=== PATIENT | male | born 1945 | race Caucasian/White ===

== ENCOUNTER → 2018-01-29 14:08 | Outpatient (CLI) | payer MEDICARE, OTHER, SELFPAY ==
[2018-01-29 14:31] LABS: Bacteria Urine None Seen; WBC Urine None Seen (0-5/HPF)
[2018-01-29 14:40] LABS: Appearance Urine UA CLEAR; Bilirubin Urine UA NEGATIVE (NEGATIVE); Color Urine UA YELLOW; Glucose Urine UA NEGATIVE (Normal); Ketones Urine UA TRACE (NEGATIVE); Leukocyte Esterase Urine UA NEGATIVE (NEGATIVE); Nitrite Urine UA Negative (Negative); Occult Blood Urine UA 3+ (Negative); Protein Urine UA NEGATIVE (Negative); Specific Gravity Urine UA 1.015 (1.000-1.035); Urobilinogen Urine UA 0.2 E.U./dL (0.2); pH Urine UA 5.5 (4.5-8.0)
[2018-01-29 14:45] LABS: Culture Indicated Urine Cult Not Indicated; RBC Urine 5-10/HPF (0-5/HPF)
== END ==
PROVIDERS: Family Provider Naturopath; PCP Family Medicine; Visit Provider Urology
DX: R31.0 Gross hematuria (principal)
CPT/HCPCS: 81001

== ENCOUNTER → 2019-02-07 14:46 | Outpatient (CLI) | payer MEDICARE, OTHER, SELFPAY ==
[2019-02-07 14:58] LABS: Bacteria Urine None Seen; RBC Urine None Seen (0-5/HPF); WBC Urine None Seen (0-5/HPF)
[2019-02-07 15:03] LABS: Appearance Urine UA CLEAR; Bilirubin Urine UA NEGATIVE (NEGATIVE); Color Urine UA YELLOW; Glucose Urine UA NEGATIVE (Negative); Ketones Urine UA NEGATIVE (NEGATIVE); Leukocyte Esterase Urine UA NEGATIVE (NEGATIVE); Nitrite Urine UA NEGATIVE (Negative); Occult Blood Urine UA NEGATIVE (Negative); Protein Urine UA NEGATIVE (Negative); Specific Gravity Urine UA 1.015 (1.000-1.035); Urobilinogen Urine UA 0.2 E.U./dL (0.2); pH Urine UA 6.5 (4.5-8.0)
[2019-02-07 15:17] LABS: Culture Indicated Urine Cult Not Indicated; Urine Comments Microscopic Normal
== END ==
PROVIDERS: Family Provider Naturopath; PCP Family Medicine; Visit Provider Urology
DX: N39.0 Urinary tract infection, site not specified (principal)
CPT/HCPCS: 81001

== ENCOUNTER → 2019-11-24 12:54 | Outpatient (CLI) | payer MEDICARE, OTHER, SELFPAY ==
--- NOTE | 2019-11-24 | DI.CT.S_ITS ---
PROCEDURE: CT KIDNEY URETER BLADDER (KUB) INDICATIONS: Unspecified abdominal pain TECHNIQUE: Noncontrast 5 mm thick sections acquired from the diaphragms to the symphysis. 5 mm thick coronal and sagittal reformats were then performed. For radiation dose reduction, the following was used: automated exposure control, adjustment of mA and/or kV according to patient size. COMPARISON: [facility], CT, IVP (ABD & PEL WWO CONTRAST), 09/09/2017, 10:27. FINDINGS: Image quality: Excellent. Lung bases: Lung bases are clear. Heart size is normal. There is a moderate hiatal hernia. Urinary system: Both kidneys are normal in size. No kidney stones. No hydronephrosis or perinephric fat stranding. Incidental note is made of a retroaortic left renal vein. Both ureters appear non-dilated throughout their expected courses. Bladder wall thickness is normal; no calcified bladder stones. A small left-sided bladder diverticulum is again seen. Other solid organs: Liver is normal in size. Gallbladder is largely collapsed at the time of this study. Pancreas is normal in contours. Spleen is normal in size. No adrenal nodules. Peritoneum and bowel: Unenhanced bowel loops demonstrate normal wall thickness and caliber. No free fluid or air. Diverticulosis is seen, without findings of active diverticulitis. Incidental note is made of a normal-appearing appendix. Nodes and vessels: No retroperitoneal or mesenteric adenopathy by size criteria. Aorta and inferior vena cava are normal in caliber. Abdominal wall: No ventral hernias. Pelvis: No free pelvic fluid. No enlarged inguinal or pelvic lymph nodes are seen. There is a fat-containing left inguinal hernia seen. The prostate gland is enlarged, measuring 6.4 centimeters transversely. Bones: No suspicious bony lesions. There is a remote L2 anterior wedge deformity, with approximately 20% loss height anteriorly. Mild retrolisthesis is seen at the L2-L3 level. No acute vertebral body compression fractures. Focal L5-S1 degenerative change is seen. Milder degenerative changes are seen elsewhere. IMPRESSION: No imaging explanation is found for this patient's presenting symptoms. No stones or hydronephrosis can be seen. No dilated loops of bowel are seen. Incidental note is made of: Moderate hiatal hernia Diverticulosis, without findings of active diverticulitis Normal appendix Prominent prostate Small left-sided bladder diverticulum Fat containing left inguinal hernia Remote anterior wedge deformity of L2 Focal L5-S1 degenerative change Dictated by: Davie Franklin M.D. on 11/24/2019 at 12:16 Approved by: Davie Franklin M.D. on 11/24/2019 at 12:20
== END ==
PROVIDERS: Family Provider Naturopath; PCP Family Medicine; Referring Provider Urology; Visit Provider Urology
DX: R10.9 Unspecified abdominal pain (principal); K44.9 Diaphragmatic hernia without obstruction or gangrene; K57.90 Diverticulosis of intestine, part unspecified, without perforation or abscess without bleeding; K40.90 Unilateral inguinal hernia, without obstruction or gangrene, not specified as recurrent; N40.0 Benign prostatic hyperplasia without lower urinary tract symptoms; N32.3 Diverticulum of bladder; M47.817 Spondylosis without myelopathy or radiculopathy, lumbosacral region
CPT/HCPCS: 74176

== ENCOUNTER → 2020-06-01 12:27 | Outpatient (CLI) | payer MEDICARE, OTHER, SELFPAY ==
[2020-06-01 12:38] LABS: Bacteria Urine None Seen; RBC Urine None Seen (0-5/HPF); WBC Urine None Seen (0-5/HPF)
[2020-06-01 13:52] LABS: Appearance Urine UA CLEAR; Bilirubin Urine UA NEGATIVE (NEGATIVE); Color Urine UA YELLOW; Glucose Urine UA NEGATIVE (Negative); Ketones Urine UA NEGATIVE (NEGATIVE); Leukocyte Esterase Urine UA NEGATIVE (NEGATIVE); Nitrite Urine UA NEGATIVE (Negative); Occult Blood Urine UA NEGATIVE (Negative); Protein Urine UA NEGATIVE (Negative); Specific Gravity Urine UA 1.015 (1.000-1.035); Urobilinogen Urine UA 0.2 E.U./dL (0.2); pH Urine UA 5.5 (4.5-8.0)
[2020-06-01 14:02] LABS: Culture Indicated Urine Cult Not Indicated; Urine Comments Microscopic Normal
== END ==
PROVIDERS: Family Provider Naturopath; PCP Family Medicine; Referring Provider Urology; Visit Provider Urology
DX: R30.0 Dysuria (principal)
CPT/HCPCS: 81001

== ENCOUNTER → 2020-06-08 10:25 | Outpatient (CLI) | payer MEDICARE, OTHER, SELFPAY ==
[2020-06-08 12:51] LABS: Alanine Aminotransferase 23 IU/L (<50); Albumin 4.1 g/dL (3.5-5.0); Albumin Globulin Ratio 1.6 (1.0-2.8); Alkaline Phosphatase 60 U/L (38-126); Aspartate Aminotransferase 25 IU/L (17-59); BUN Creatinine Ratio 24.1 (6-22); Bilirubin Total 0.8 mg/dL (0.2-1.3); Blood Urea Nitrogen 19 mg/dL (9-20); Carbon Dioxide 31 mmol/L (22-32); Chloride 102 mmol/L (98-107); Estimated Glomerular Filt Rate > 60.0 mL/min (>60); Globulin 2.6 g/dL (1.7-4.1); Glucose 111 mg/dL (80-110); HEMOLYSIS < 15 (0-50); Sodium 136 mmol/L (137-145); Total Protein 6.7 g/dL (6.3-8.2)
== END ==
PROVIDERS: Family Provider Naturopath; Referring Provider Urology; Visit Provider Urology
DX: R31.0 Gross hematuria (principal)
CPT/HCPCS: 36415; 80053

== ENCOUNTER → 2020-06-14 14:00 | Outpatient (CLI) | payer MEDICARE, OTHER, SELFPAY ==
--- NOTE | 2020-06-14 | DI.CT.S_ITS ---
PROCEDURE: CT ABDOMEN PELVIS WO/W CON INDICATIONS: Gross hematuria TECHNIQUE: Optional 5 mm thick noncontrast images acquired from the diaphragm to the symphysis pubis. After the administration of intravenous contrast, 5 mm thick images acquired from the diaphragm to the symphysis pubis after a 10-minute delay. 2 mm thick coronal and sagittal reformats were then performed of the kidneys and ureters. For radiation dose reduction, the following was used: automated exposure control, adjustment of mA and/or kV according to patient size. COMPARISON: [facility], CT, CT KIDNEY URETER BLADDER (KUB), 11/24/2019, 13:00. [facility], CT, IVP (ABD & PEL WWO CONTRAST), 09/09/2017, 10:27. FINDINGS: Image quality: Excellent. Lung bases: Platelike atelectasis or scar is present in the dependent lungs bilaterally. The lung bases are otherwise clear. Heart is normal size. There is a small hiatal hernia. Urinary system: Both kidneys are normal in size, without hydronephrosis or nephrolithiasis on pre-contrast images. No perinephric fat stranding. There is normal bilateral renal enhancement. Renal calyces appear normal in morphology when filled with contrast. Opacified portions of both ureters demonstrate normal caliber. The bladder is thin walled overall. There is a questionable focal mass adjacent to the left ureterovesicular junction versus prostate enlargement (series 3/image 195). There are 2 small left lateral diverticular outpouchings. Other solid organs: Liver is normal in size and enhancement. Low-density cystic lesions at the dome of the liver are unchanged. Gallbladder is contracted . Biliary system is non dilated. Pancreas enhances normally. Spleen is normal in size and enhancement. No adrenal nodules. Peritoneum and bowel: Bowel loops demonstrate normal wall thickness and caliber. The appendix is thin walled and gas filled.There are scattered sigmoid diverticula. No evidence for diverticulitis. No free fluid or air. Nodes and vessels: No retroperitoneal or mesenteric adenopathy by size criteria. Aorta and inferior vena cava are normal in size. There are scattered atheromatous calcifications throughout the aorta and iliac arteries bilaterally. Abdominal wall: No ventral hernias. Pelvis: No pathologic free pelvic fluid. No inguinal adenopathy. There is a small fat containing left inguinal hernia. Bones: No suspicious bony lesions. No vertebral body compression fractures. IMPRESSION: 1. No hydronephrosis, nephrolithiasis, hydroureter, or ureterolithiasis. 2. Questionable posterior left bladder mass as described above. Direct visualization would be helpful to further characterize this finding. 3. Normal appendix. Diverticulosis. No acute diverticulitis. 4. Aortic atherosclerosis. Dictated by: Grazyna Cunningham M.D. on 06/14/2020 at 15:35 Approved by: Grazyna Cunningham M.D. on 06/14/2020 at 15:47
== END ==
PROVIDERS: Family Provider Naturopath; Referring Provider Urology; Visit Provider Urology
DX: R31.0 Gross hematuria (principal); K57.30 Diverticulosis of large intestine without perforation or abscess without bleeding; I70.0 Atherosclerosis of aorta
CPT/HCPCS: 74178; Q9967

== ENCOUNTER → 2020-06-25 12:54 | Outpatient (CLI) | payer MEDICARE, OTHER, SELFPAY ==
--- NOTE | 2020-06-25 12:58 | DI.MRI.S_ITS ---
PROCEDURE: MR PELIS WO/W CON INDICATIONS: Prostatodynia syndrome TECHNIQUE: Noncontrast coronal T1 spin echo and STIR, sagittal T1 spin echo with fat saturation and STIR, axial T1 spin echo and T2 fast spin echo with fat saturation. After the administration of contrast, axial/sagittal/coronal T1 spin echo with fat saturation through the pelvis. COMPARISON: [facility], CT, CT KIDNEY URETER BLADDER (KUB), 11/24/2019, 13:00. [facility], CT, CT ABDOMEN PELVIS WO/W CON, 06/14/2020, 14:07. FINDINGS: Image quality: Excellent. Bones: The visualized bone marrow demonstrates normal signal on all sequences. The overlying cortex appears intact. No abnormal intraosseous enhancement. Soft tissues: No soft tissue masses are visualized. The prostate gland demonstrates scattered ovoid and rounded nodular structures consistent with BPH but no malignant appearing mass is found. No inflammation at or adjacent to the prostate gland is seen. Several internal prostate calcifications are identified as was also the case on prior CT scanning from the study performed 06/14/20. The scanned muscles demonstrate normal overall bulk and internal signal. Subcutaneous tissues appear normal as well. No abnormal soft tissue enhancement. The prostate gland measures up to 5.6 cm AP, 5.7 cm transverse and 7.3 cm craniocaudad. IMPRESSION: A source of persistent prostate pain is not identified. Mild prostate enlargement, and internal morphology consistent with BPH. Several prostate calcifications are incidentally noted as was also seen on prior CT scanning. No underlying active infection or definite malignancy is found. Dictated by: Chico Marks M.D. on 06/25/2020 at 15:04 Approved by: Chico Marks M.D. on 06/25/2020 at 15:10
== END ==
PROVIDERS: Family Provider Naturopath; PCP Family Medicine; Referring Provider Urology; Visit Provider Urology
DX: N42.81 Prostatodynia syndrome (principal)
CPT/HCPCS: 72197; A9579

== ENCOUNTER → 2020-08-14 10:33 | Outpatient (CLI) | payer MEDICARE, OTHER, SELFPAY ==
--- NOTE | 2020-08-14 10:36 | DI.US.S_ITS ---
PROCEDURE: US THYROID INDICATIONS: NODULES TECHNIQUE: Real-time scanning was performed of the thyroid gland, with image documentation. COMPARISON: [facility], US, THYROID, 08/02/2014, 11:23. FINDINGS: Right: Thyroid lobe measures 4.2 x 1.6 x 1.4 cm, and is homogeneous in echotexture. No change in cysts roughly 5 mm right inferior thyroid nodule. Left: Thyroid lobe measures 3.7 x 2.1 x 1.7 cm, and is homogenous in echotexture. Isthmus: 1.9 mm thick. Nodule number: 1 Location: Right inferior Size: Stable at 1.0 x 0.9 x 0.7 cm. Composition: Solid Echogenicity: Hypoechoic Shape: wider than tall. Margins: Smooth Echogenic foci: Macro calcification Total points: 6 ACR TI-RADS category: Moderately suspicious IMPRESSION: No change in roughly 1 cm and 5 mm right thyroid nodules. Recommend continued followup ultrasound as detailed below. ACR TI-RADS definitions and recommendations: TI-RADS 1 (benign): 0 points. FNA not needed. TI-RADS 2 (not suspicious): 2 points. FNA not needed. TI-RADS 3 (mildly suspicious): 3 points. * FNA if 2.5 cm or larger, follow up if 1.5 cm or larger (at 1, 3, and 5 years). TI-RADS 4 (moderately suspicious): 4-6 points. * FNA if 1.5 cm or larger, follow up if 1 cm or larger (at 1, 2, 3, and 5 years). TI-RADS 5 (highly suspicious): 7 points or more. * FNA if 1 cm or larger, follow up if 0.5 cm or larger (every year for 5 years). Dictated by: [facility] Interpreted: Chico Marks MD on 08/14/2020 at 16:55 Approved by: Chico Marks M.D. on 08/15/2020 at 12:03
== END ==
PROVIDERS: Family Provider Naturopath; PCP Family Medicine; Referring Provider Nurse Practitioner Family; Visit Provider Nurse Practitioner Family
DX: E04.2 Nontoxic multinodular goiter (principal)
CPT/HCPCS: 76536

== ENCOUNTER 2020-10-24 07:00 | Emergency (ER) | payer MEDICARE, OTHER, SELFPAY ==
[2020-10-24] VITALS (10 sets, daily range): BP systolic 153–163; BP diastolic 91–95; PULSE 72–94; RESP 18–26; O2SAT 97–99
--- NOTE | 2020-10-24 07:15 | DI.RAD.S_ITS ---
PROCEDURE: XR CHEST 1V INDICATIONS: chest pain TECHNIQUE: One view of the chest was acquired. COMPARISON: [facility], CHEST 2 VIEW, 09/02/2017, 8:49. [facility], CHEST 1 VIEW, 02/18/2016, 12:32. FINDINGS: Surgical changes and devices: None. Lungs and pleura: Lungs are clear. No pleural effusions or pneumothorax. Mediastinum: Mediastinal contours appear normal. Heart size is normal. Bones and chest wall: No suspicious bony lesions. Overlying soft tissues appear unremarkable. IMPRESSION: Normal for age, source of current chest pain symptoms is not seen. Dictated by: Chico Marks M.D. on 10/24/2020 at 8:14 Approved by: Chico Marks M.D. on 10/24/2020 at 8:15
--- NOTE | 2020-10-24 07:21 | ED_ITS ---
HPI - Chest Pain General Chief Complaint: Chest Pain Stated Complaint: chest pain intermittently x3 days Time Seen by Provider: 10/24/20 07:21 Source: patient Mode of arrival: Ambulatory Limitations: no limitations History of Present Illness HPI narrative: Patient is a 75-year-old male with history of acid reflux and Kyaw procedure presenting today with 3 days of chest discomfort. He says it feels definitely different than his acid reflux which she is used to having. It comes and lasts for about 20 minutes today nonradiating he does not describe as a pain but discomfort. He is able to walk around the park he does feel it but is able to power through it. It does not stop him. He denies any shortness of breath with exertion, nausea or diaphoresis. He says this morning he woke up and just felt that something was off and took aspirin 325 in came to the emergency department. He says the aspirin took his discomfort completely away. MD complaint: chest pain Onset (ago): day(s) Duration: intermittent and now resolved Pain location: left chest Severity: mild Quality: other (Discomfort) Pain radiation: none Relieving factors: nothing Exacerbating factors: nothing Treatments prior to arrival chest pain: aspirin Review of Systems Review of Systems Narrative: GENERAL: Denies chills, fatigue, malaise, fever, sweats, travel HEENT: Denies sinus pain, ear pain, sore throat, difficulty swallowing, neck pain RESPIRATORY: Denies dyspnea, cough, wheezing, hemoptysis, sputum. CARDIOVASCULAR: See HPI GASTROINTESTINAL: Denies nausea, vomiting, abdominal pain, diarrhea, constipation, melena. : Denies dysuria, frequency, incontinence, hematuria, urinary retention, flank pain. MUSCULOSKELETAL: Denies weakness, joint pain, or bony pain SKIN: No rash, no erythema, no pruritus NEUROLOGIC: Denies weakness, dizziness, headache, numbness, change in speech, confusion PSYCHIATRIC: No concerning psychosocial issues. 12 point review of systems is negative except for those stated above and HPI Patient History Surgical History History of Kyaw fundoplication Social History Smoking Status: Never smoker Smoking Status: Never smoker alcohol intake frequency: a few times a month Substance Use Type: does not use Exam Initial Vital Signs Initial Vital Signs: Vital Signs Pulse Rate 94 H 10/24/20 07:15 Pulse Oximetry 97 10/24/20 07:15 GENERAL: Pleasant alert 75-year-old male and in no acute distress. HEENT: Head atraumatic,EOMI, pupils reactive, face symmetric, moist mucous membranes CARDIOVASCULAR: Regular rate and rhythm without murmurs, rubs or gallops. RESPIRATORY: Breath sounds equal bilaterally, no wheezes rales or rhonchi. ABDOMEN: Soft, nontender. Normoactive bowel sounds all 4 quadrants. No guardi ng or rebound. EXTREMITIES: Normal range of motion, no clubbing or edema. Neurovascularly intact NEUROLOGICAL: Alert and oriented x4.Normal gait and speech. Cranial nerves II through XII grossly intact. SKIN: Warm, dry, no laceration, no petechiae, no rashes or lesions. Scores HEART Score Heart Score history: Moderately Suspicious Heart Score EKG: Normal Heart Score Age: > or = 65 years old Heart Score risk factors: 1-2 risk factors Heart Score troponin: < or = to normal limit Heart Score Total: 4 Course Orders Ordered: ED Orders 10/24/20 07:10 EKG-12 Lead Stat 10/24/20 07:13 Complete Blood Count AUTO DIFF Stat Comprehensive Metabolic Panel Stat Lipase Stat Partial Thromboplastin Time Stat Prothrombin Time INR Stat Troponin & CK Cardiac Panel Stat 10/24/20 07:15 XR chest 1V Stat 10/24/20 07:54 EKG-12 Lead Routine 10/24/20 09:20 Troponin I Stat Vital Signs Vital signs: Vital Signs - 8 hr 10/24/20 07:15 10/24/20 07:21 10/24/20 07:30 Pulse Rate 94 H 90 85 Respiratory Rate 18 20 Blood Pressure 163/95 H Pulse Oximetry 97 99 98 10/24/20 07:31 10/24/20 08:00 10/24/20 08:30 Pulse Rate 84 81 80 Respiratory Rate 26 H 19 19 Blood Pressure 159/94 H Pulse Oximetry 98 97 97 10/24/20 09:00 10/24/20 09:30 10/24/20 09:53 Pulse Rate 79 76 72 Respiratory Rate 18 19 19 Blood Pressure Pulse Oximetry 97 98 99 10/24/20 09:54 Pulse Rate Respiratory Rate Blood Pressure 153/91 H Pulse Oximetry MDM - Chest Pain Lab Data Attestation: I reviewed the patient's lab results. Result diagrams: 10/24/20 07:13 10/24/20 07:13 Labs: Lab Results 10/24/20 10/24/20 10/24/20 Range/Units 07:13 07:13 07:13 WBC 5.2 (4.5-11.0) X10^3/uL RBC 5.23 (4.5-5.9) X10^6/uL Hgb 17.2 (13.5-17.5) g/dL Hct 49.2 (41-53) % MCV 94.0 (80-100) fL MCH 32.9 (26-34) PG MCHC 35.0 (30-36) % RDW 12.4 (11.6-14.8) % Plt Count 155 (150-400) X10^3/uL Neut % (Auto) 72.5 (50-75) % Lymph % (Auto) 18.9 L (25-40) % [place] % (Auto) 6.1 (3-14) % Eos % (Auto) 2.0 (2-4) % Baso % (Auto) 0.5 (0-2) % Neut # (Auto) 3800 (5181-4262) /uL Lymph # (Auto) 1000 L (9511-6441) /uL [place] # (Auto) 300 (0-900) /uL Eos # (Auto) 100 (0-450) /uL Baso # (Auto) 0 (0-100) /uL PT 11.2 (10.1-12.7) SECONDS INR 1.0 (0.9-1.3) APTT 35 (26.4-36.2) SECONDS Sodium 136 L (137-145) mmol/L Potassium 4.1 (3.4-5.1) mmol/L Chloride 99 (98-107) mmol/L Carbon Dioxide 31 (22-32) mmol/L BUN 19 (9-20) mg/dL Creatinine 0.87 (0.66-1.25) mg/dL Estimated GFR > 60.0 (>60) mL/min BUN/Creatinine Ratio 21.8 (6-22) Glucose 152 H (80-110) mg/dL Calcium 9.7 (8.4-10.2) mg/dL Total Bilirubin 0.8 (0.2-1.3) mg/dL AST 35 (17-59) IU/L ALT 35 (<50) IU/L Alkaline Phosphatase 74 (38-126) U/L Total Creatine Kinase 96 (55-170) U/L CK-MB (CK-2) TNP CK-MB (CK-2) Rel Index TNP Troponin I < 0.012 (0.01-0.034) ng/mL Total Protein 7.9 (6.3-8.2) g/dL Albumin 4.9 (3.5-5.0) g/dL Globulin 3.0 (1.7-4.1) g/dL Albumin/Globulin Ratio 1.6 (1.0-2.8) Lipase 93 (23-300) U/L 10/24/20 Range/Units 09:20 WBC (4.5-11.0) X10^3/uL RBC (4.5-5.9) X10^6/uL Hgb (13.5-17.5) g/dL Hct (41-53) % MCV (80-100) fL MCH (26-34) PG MCHC (30-36) % RDW (11.6-14.8) % Plt Count (150-400) X10^3/uL Neut % (Auto) (50-75) % Lymph % (Auto) (25-40) % [place] % (Auto) (3-14) % Eos % (Auto) (2-4) % Baso % (Auto) (0-2) % Neut # (Auto) (6206-6137) /uL Lymph # (Auto) (4140-7811) /uL [place] # (Auto) (0-900) /uL Eos # (Auto) (0-450) /uL Baso # (Auto) (0-100) /uL PT (10.1-12.7) SECONDS INR (0.9-1.3) APTT (26.4-36.2) SECONDS Sodium (137-145) mmol/L Potassium (3.4-5.1) mmol/L Chloride (98-107) mmol/L Carbon Dioxide (22-32) mmol/L BUN (9-20) mg/dL Creatinine (0.66-1.25) mg/dL Estimated GFR (>60) mL/min BUN/Creatinine Ratio (6-22) Glucose (80-110) mg/dL Calcium (8.4-10.2) mg/dL Total Bilirubin (0.2-1.3) mg/dL AST (17-59) IU/L ALT (<50) IU/L Alkaline Phosphatase (38-126) U/L Total Creatine Kinase (55-170) U/L CK-MB (CK-2) CK-MB (CK-2) Rel Index Troponin I < 0.012 (0.01-0.034) ng/mL Total Protein (6.3-8.2) g/dL Albumin (3.5-5.0) g/dL Globulin (1.7-4.1) g/dL Albumin/Globulin Ratio (1.0-2.8) Lipase (23-300) U/L Imaging Data Chest x-ray: Radiologist's Impression: PROCEDURE: XR CHEST 1V INDICATIONS: chest pain TECHNIQUE: One view of the chest was acquired. COMPARISON: [facility], CHEST 2 VIEW, 09/02/2017, 8:49. [facility], , CHEST 1 VIEW, 02/18/2016, 12:32. FINDINGS: Surgical changes and devices: None. Lungs and pleura: Lungs are clear. No pleural effusions or pneumothorax. Mediastinum: Mediastinal contours appear normal. Heart size is normal. Bones and chest wall: No suspicious bony lesions. Overlying soft tissues appear unremarkable. IMPRESSION: Normal for age, source of current chest pain symptoms is not seen. Dictated by: Chico Marks M.D. on 10/24/2020 at 8:14 ECG Data Attestation: I personally reviewed and interpreted this ECG as follows: Prior ECG tracings: available for review Interpretation: EKG 1. Sinus rhythm rate 88 IA interval 184 QRS 101 QTC 410 mild artifact noted no ST changes to previous EKG in 2018 EKG 2. Sinus rhythm rate 80 similar to previous EKG this is not atrial flutter as computer states MDM Narrative Medical decision making narrative: Concern for worsening chest discomfort over the last 3 days discussed with patient admission for stress test however patient would rather go home. I discussed case with PCP who has scheduled him for outpatient stress test and will see him as soon as possible. Patient is informed of warning signs and to call 911 and return to emergency department if chest discomfort should worsen in any way. 10:17 Dr. Coburn, PCP updated patient's symptoms test results will arrange for outpatient stress test The patient is clinically sober, free from distracting injury, appears to have intact insight, judgment and reason. Does not meet criteria for involuntary hospitalization. Patient has the capacity to make decisions. I discussed all findings with the patient, Education has been performed regarding treatment plan, diagnosis, warning signs and symptoms and all concerns have been addressed. Verbally agree with and understood all of the above. Discharge Plan Departure Patient Disposition: Home Clinical Impression: Atypical chest pain Instructions: DI for Atypical Chest Pain Activity Restrictions/Additional Instructions: STOP AT OFFICE LEAVING THE EMERGENCY DEPARTMENT FOR STRESS TEST PRESCRIPTION. THEY WILL ALSO GIVE YOUR APPOINTMENT AT THAT TIME *You have been diagnosed with chest pain *What to do: You need a stress test. I have spoken with your primary care provider office. They have scheduled you for an appointment. If you should have any worsening or changing chest discomfort you need to call 911 and return to the nearest emergency department for further evaluation *Continue to take medications as directed Aspirin 81 mg daily *Follow up with your primary care provider *Return to ER if you should have increasing chest pain shortness of breath palpitation or any new, worsening or concerning symptoms Referrals: Bianca Peña MD [Primary Care Provider] -
[2020-10-24 07:24] LABS: Prothrombin Time 11.2 SECONDS (10.1-12.7)
[2020-10-24 07:26] LABS: Add Manual Diff / Slide Review NO; Basophils Absolute Auto 0 /uL (0-100); Basophils Percent Auto 0.5 % (0-2); Eosinophils Absolute Auto 100 /uL (0-450); Hematocrit 49.2 % (41-53); Hemoglobin 17.2 g/dL (13.5-17.5); Lymphocytes Absolute Auto 1000 /uL (1100-4500); Lymphocytes Percent Auto 18.9 % (25-40); Mean Corpuscular Hemoglobin 32.9 PG (26-34); Monocytes Absolute Auto 300 /uL (0-900); Monocytes Percent Auto 6.1 % (3-14); Neutrophils Absolute Auto 3800 /uL (1500-7000); Neutrophils Percent Auto 72.5 % (50-75); Platelet Count 155 X10^3/uL (150-400); Red Blood Cell Count 5.23 X10^6/uL (4.5-5.9); Red Cell Distribution Width 12.4 % (11.6-14.8); White Blood Cell Count 5.2 X10^3/uL (4.5-11.0)
[2020-10-24 07:27] LABS: PTT Partial Thromboplastin Tim 35 SECONDS (26.4-36.2)
[2020-10-24 07:28] LABS: Alanine Aminotransferase 35 IU/L (<50); Albumin 4.9 g/dL (3.5-5.0); Albumin Globulin Ratio 1.6 (1.0-2.8); Alkaline Phosphatase 74 U/L (38-126); Aspartate Aminotransferase 35 IU/L (17-59); BUN Creatinine Ratio 21.8 (6-22); Bilirubin Total 0.8 mg/dL (0.2-1.3); Blood Urea Nitrogen 19 mg/dL (9-20); Calcium 9.7 mg/dL (8.4-10.2); Carbon Dioxide 31 mmol/L (22-32); Chloride 99 mmol/L (98-107); Creatine Kinase 96 U/L (55-170); Estimated Glomerular Filt Rate > 60.0 mL/min (>60); Glucose 152 mg/dL (80-110); HEMOLYSIS < 15 (0-50); Lipase 93 U/L (23-300); Potassium 4.1 mmol/L (3.4-5.1); Sodium 136 mmol/L (137-145); Total Protein 7.9 g/dL (6.3-8.2)
[2020-10-24 07:39] LABS: Troponin I < 0.012 ng/mL (0.01-0.034)
[2020-10-24 09:53] LABS: Troponin I < 0.012 ng/mL (0.01-0.034)
== END 2020-10-24 10:46 | disposition home or self-care (01) ==
PROVIDERS: Emergency Provider Emergency Medicine; Family Provider Naturopath; PCP Family Medicine
DX: R07.89 Other chest pain (principal)
CPT/HCPCS: 36415; 71045; 80053; 82550; 83690; 84484; 85025; 85610; 85730; 93005; 99283; 99284

== ENCOUNTER → 2020-10-27 10:02 | Outpatient (CLI) | payer MEDICARE, OTHER, SELFPAY ==
[2020-10-27 11:56] LABS: COVID19 -Nasal RAPID Negative (Negative)
== END ==
PROVIDERS: Family Provider Naturopath; PCP Family Medicine; Visit Provider Nurse Practitioner
DX: Z20.822 Contact with and (suspected) exposure to COVID-19 (principal)
CPT/HCPCS: 87635; C9803

== ENCOUNTER → 2020-10-29 10:44 | Outpatient (CLI) | payer MEDICARE, OTHER, SELFPAY ==
--- NOTE | 2020-10-29 11:41 | PM.TREADMILL ---
Cardiac Stress Test Report Referral & Results Date Patient Seen: 10/29/20 Time Patient Seen: 11:41 Requesting provider: Kirill Coburn Indication: chest pain Rest ECG: Sinus rhythm Procedure Note: Standard Joseph protocol, 3:36, 4.6 mets Reduced exercise capacity, LARA +32% Normal hemodynamic response to exercise No chest pain or anginal symptoms No significant ST changes at peak exercise, no ectopy Impression: normal exercise stress test Please note: Actual ECG tracings can be found in the PACS system.
--- NOTE | 2020-10-30 18:57 | DI.NM.S_ITS ---
DATE OF SERVICE: PROCEDURE: Exercise perfusion study. DATE OF STUDY: October 29, 2020 INDICATIONS: Chest pain with underlying hyperlipidemia. The patient is a 75 [id number]. RADIOPHARMACEUTICAL: 27.5 millicurie technetium-99m Myoview IV was injected at stress and 24.4 millicurie of technetium-99m Myoview IV was injected at rest. CARDIAC STRESS: The patient underwent exercise perfusion study under the supervision of an attending staff. The patient walked on the Joseph protocol for 3 minutes 36 seconds, achieved 99 percent of target heart rate, normal blood pressure response, 4.6 METS of workload and functional aerobic impairment +32%. The patient could not keep up with the treadmill. [place] fatigue and dyspnea without any chest discomfort. Baseline EKG revealed sinus rhythm. During stress, no convincing ischemic changes. No significant sustained arrhythmias. RAW DATA: There is a gut shadow seen near the inferior border of the heart. GATED STUDY: Resting LV ejection fraction is 73 percent and stress LV ejection fraction 75% without any obvious wall motion abnormalities. Resting end- diastolic volume 97 mL. TID ratio 0.78, which is within normal limits. Lung/heart ratio 0.32, which is within normal limits. MYOCARDIAL PERFUSION SCAN: Stress supine and resting supine images revealed a small size, mildly decreased perfusion of basal inferior wall, which got resolved during prone images suggestive of tissue attenuation artifact. No convincing ischemia or infarction pattern. CONCLUSION: I will call this study a normal myocardial perfusion study with evidence of breast tissue attenuation artifact which got resolved during prone images. Diminished exercise tolerance. Preserved left ventricular function. No significant arrhythmia seen. As far as perfusion scan is concerned, this is a low-risk myocardial perfusion scan. Dwaine Cooney - GUANACO/bossman/casie doc#: [id number]/job#: [id number] dd: 10/30/2020 17:59:00 dt: 10/30/2020 18:50:00 DICTATING /COPIES TO: Francisco Childs MD COPIES MNE: AMA;
== END ==
PROVIDERS: Family Provider Naturopath; PCP Family Medicine; Referring Provider Family Medicine; Visit Provider Family Medicine
DX: R07.9 Chest pain, unspecified (principal); E78.5 Hyperlipidemia, unspecified
CPT/HCPCS: 78452; 93017; A9502

== ENCOUNTER → 2021-04-24 08:10 | Outpatient (CLI) | payer MEDICARE, OTHER, SELFPAY ==
[2021-04-24 09:03] LABS: COVID19 -Nasal RAPID Negative (Negative)
== END ==
PROVIDERS: Family Provider Naturopath; PCP Family Medicine; Referring Provider Internal Medicine; Visit Provider Internal Medicine
DX: Z20.822 Contact with and (suspected) exposure to COVID-19 (principal)
CPT/HCPCS: 87635; C9803

== ENCOUNTER → 2021-04-25 06:42 | Outpatient (CLI) | payer MEDICARE, OTHER, SELFPAY ==
--- NOTE | 2021-05-01 08:31 | PM.PFT.1 ---
Pulmonary Function Test Referral & Results Date Patient Seen: 04/25/21 Requesting provider: Kirill Coburn Results: The spirometry demonstrates an FVC of 4.81 L which is 80% of predicted. The FEV1 was measured at 3.46 L which is 86% of predicted. The FEV1/FVC ratio was 72 which is 99% of predicted. Following the administration of bronchodilator there was a 12% improvement in FEV1 and a 41% improvement in FEF 25-75% Lung volumes show an SVC of 5.43 L which is 98% of predicted. The diffusing capacity was measured at 32.43 which is 77% go to end of sentence my no hemoglobin of predicted. The maximum voluntary ventilation was minimally reduced Interpretation: This study demonstrates perhaps very mild obstructive lung disease based on minimal reduction FEV1 but notable improvement post bronchodilator particularly in small airway flow as noted above Lung volumes are normal and diffusing capacity may be only minimally reduced suggesting the possibility minimal disease the capillary alveolar level unless patient is anemic as above Clinical correlation suggested
== END ==
PROVIDERS: Family Provider Naturopath; PCP Family Medicine; Referring Provider Family Medicine; Visit Provider Family Medicine
DX: R06.02 Shortness of breath (principal); G44.84 Primary exertional headache
CPT/HCPCS: 94060; 94726; 94729

== ENCOUNTER → 2021-06-19 10:09 | Outpatient (CLI) | payer MEDICARE, OTHER, SELFPAY ==
[2021-06-19 14:14] LABS: COVID19 -Nasal RAPID Negative (Negative)
== END ==
PROVIDERS: Family Provider Naturopath; PCP Family Medicine; Visit Provider Specialist
DX: Z01.812 Encounter for preprocedural laboratory examination (principal); Z20.822 Contact with and (suspected) exposure to COVID-19
CPT/HCPCS: 87635; C9803

== ENCOUNTER 2021-06-21 06:47 | Day surgery (SDC) | payer MEDICARE, OTHER, SELFPAY ==
--- NOTE | 2021-06-21 | PATH_ITS ---
[facility] Accession Number: [id number] . 01 Material submitted: . rectum - RECTAL BIOPSIES/PROBABLY IRRITATED HEMORRHOIDAL TISSUE . 02 Diagnosis: Rectum, Biopsies: Colorectal mucosa with nonspecific hemorrhage and congestion. Negative for active or microscopic colitis. Negative for granulomas, dysplasia, and malignancy. [facility] 06/25/2021 1109 Local . 02 Electronically signed: . Luis Eduardo Torres MD, PhD, Pathologist NPI- [id number] . 01 Gross description: . RECTAL BIOPSIES/PROBABLY IRRITATED HEMORRHOIDAL TISSUE: Received in formalin are multiple fragment(s) of duarte, soft tissue measuring 1.5 x 0.7 x 0.2 cm in aggregate submitted entirely in 1 cassette(s) /PRAKASH 06/22/2021 0501 Local . 02 Pathologist provided ICD-10: K62.5, Z80.0 . 02 CPT . 364349 Performed at: 01 [facility] [address], [place], [place] [id number] MD Hipolito Gordon MD Phone: [phone] Performed at: 02 [facility] [address] [place], [place] [id number] MD Charlee Barreto MD Phone: [phone]
[2021-06-21 07:17] VITALS: BP 125/78; PULSE 93; RESP 16; TEMP 36.6; O2SAT 99; BMI 24.3
[2021-06-21] MEDS: LACTATED RINGERS 1,000 ML 42 ML IV (07:34)
--- NOTE | 2021-06-21 07:55 | PM.HP.1 ---
History of Present Illness History of Present Illness Chief complaint: DX COLONOSCOPY Narrative: The patient is a gentleman here for screening colonoscopy. He had been having rectal bleeding. He had some hemorrhoidal issues and that has gone away. It has been several months since I saw him for that problem as he developed some shortness of breath that was evaluated by his family doctor. Patient History Medical History BPH (benign prostatic hyperplasia) GERD (gastroesophageal reflux disease) Glaucoma Hemorrhoid Laryngopharyngeal reflux (LPR) Surgical History H/O hernia repair History of Kyaw fundoplication Family & Social History Family History Father Diabetes mellitus Mother Cancer Social History: household members none Tobacco & Substance use: Smoking Status Never smoker alcohol intake current alcohol intake frequency a few times a week Substance Use Type does not use Meds Home Medications and Allergies Home Medications Medication Instructions Recorded Confirmed Type alfuzosin 10 mg tablet,extended 10 mg PO DAILY 02/21/21 06/21/21 History release 24 hr cholecalciferol (vitamin D3) 50 50 mcg PO DAILY 02/21/21 06/21/21 History mcg (2,000 unit) capsule cyanocobalamin (vitamin B-12) 2,500 mcg PO DAILY 02/21/21 06/21/21 History 2,500 mcg tablet dexlansoprazole 30 mg 30 mg PO DAILY 02/21/21 06/21/21 History capsule,biphase delayed release (Dexilant) finasteride 5 mg tablet 5 mg PO DAILY 02/21/21 06/21/21 History levothyroxine 25 mcg capsule 25 mcg PO DAILY 02/21/21 06/21/21 History brimonidine 0.15 % eye drops 3 drp EYE-BOTH TID 06/21/21 06/21/21 History (Alphagan P) Allergies Allergy/AdvReac Type Severity Reaction Status Date / Time No Known Drug Allergies Allergy Verified 06/21/21 07:28 Review of Systems Review of Systems Narrative: Patient has no active shortness of breath at rest. No chest pain. No black or bloody bowel movements at this time. Exam Vital Signs (past 8 hours): - 06/21/21 07:17 Temperature 97.9 F Pulse Rate 93 H Respiratory Rate 16 Blood Pressure 125/78 Pulse Oximetry 99 Oxygen Delivery Method Room Air Narrative Exam Narrative: Pleasant cooperative patient no apparent distress. Lungs are clear to auscultation. No rales or rhonchi. Heart regular rate and rhythm no murmur gallop. Abdomen is soft nontender without mass. No obvious hernias. Patient is alert and oriented x3. Assessment & Plan Assessment and plan (1) Family history of colon cancer: Status: Acute (2) Rectal bleeding: Status: Acute Assessment & Plan narrative: Last colonoscopy was 5 years ago. Given his family history and recent rectal bleeding he is brought for colonoscopy. I have discussed the procedure and the rationale with the patient including risks of bleeding, perforation which would necessitate a major operation, failure to find remove all lesions and the potential to tattoo. He appeared to understand and wished to proceed. Time Spent With Patient Critical Care time: I spent a total of [] minutes of critical care time on this patient's care today; this time is exclusive of procedural time.
--- NOTE | 2021-06-21 07:59 | PM.PREOP ---
Pre-operative Note COVID-19 COVID-19 status: Negative Result date/Date tested (Pos, Neg/Pending): 06/20/21 Interval Note History & Physical reviewed/Exam performed by Physician: Yes Changes to H&P: No ASA Class (for procedural sedation): II
--- NOTE | 2021-06-21 08:46 | P.OP.COLON_ITS ---
Operative Date/Time/Diagnoses Date of procedure: 06/21/21 Time of procedure: 08:46 Pre-op diagnosis: Screening for colon cancer. Last exam 5 years ago. Family history of colon cancer. Post-op diagnosis: same Procedure & Clinicians Study performed: Colonoscopy with cold biopsy Same procedure as scheduled: Yes Indications: Screening Surgeon: Aydin Romero Procedure Notes SCOAP/Timeout: Performed Procedure in detail: The patient was placed in the left lateral decubitus position and underwent IV sedation directed by the surgeon consisting of fentanyl and Versed. Digital exam was unremarkable. I could not feel is pro state well. The scope was inserted and advanced through the rectum into the sigmoid, descending, transverse, and ascending colon. Pressure was applied is stiffener inserted in order to reach the cecum. The cecum was reached identified by the ileocecal valve and the appendiceal opening. The scope was gradually brought out. NoPolyps were found. The scope ultimately was retroflexed in the rectum. The appearance was remarkable for fairly large hemorrhoids. There was some granular tissue in this area which I biopsied. I suspected this just irritated mucosa over hemorrhoid but I wanted to make sure of that. The scope was removed and the patient tolerated the procedure well. Prep was adequate Scope withdrawal time: 8-1/2 minutes Sedation minutes: 37 Findings: divertiulosis and internal hemorrhoids Specimen(s): other (Rectal biopsies) Complications: none Post-procedure Recommendations: Colonoscopy in 5 years Follow up: as needed Disposition: PACU
[2021-06-21] MEDS: MIDAZOLAM 5 MG/5 ML VIAL IV (08:47)
[2021-06-21] MEDS: fentaNYL 250 MCG/5 ML INJ IV (08:47)
[2021-06-21 08:48] VITALS: BP 107/55; PULSE 59; RESP 12; TEMP 36.9; O2SAT 97
[2021-06-21 08:52] VITALS: BP 116/73; PULSE 8; RESP 11; O2SAT 97
[2021-06-21 08:57] VITALS: BP 118/85; PULSE 87; RESP 15; TEMP 37.1; O2SAT 97
[2021-06-21 09:05] VITALS: BP 113/81; PULSE 83; RESP 13; O2SAT 98
[2021-06-21 09:12] VITALS: BP 126/88; PULSE 82; RESP 14; TEMP 36.9; O2SAT 98
== END 2021-06-21 09:29 | disposition home or self-care (01) ==
PROVIDERS: Family Provider Naturopath; PCP Family Medicine; Referring Provider Specialist; Visit Provider Specialist
PROC: 0DJD8ZZ Inspection of Lower Intestinal Tract, Via Natural or Artificial Opening Endoscopic (ICD-10-PCS; CPT 45378; principal; 2021-06-21 07:45)
DX: K62.5 Hemorrhage of anus and rectum (principal); Z80.0 Family history of malignant neoplasm of digestive organs; K57.30 Diverticulosis of large intestine without perforation or abscess without bleeding; K64.8 Other hemorrhoids
CPT/HCPCS: 45380; 99152; 99153; J2250; J3010

== ENCOUNTER → 2021-07-15 09:08 | Outpatient (CLI) | payer MEDICARE, OTHER, SELFPAY | PROVIDERS: Family Provider Naturopath; PCP Family Medicine; Referring Provider Urology; Visit Provider Urology | DX: N45.1 Epididymitis (principal) | CPT/HCPCS: 87086 ==

== ENCOUNTER 2022-07-20 22:27 | Emergency (ER) | payer MEDICARE, OTHER, SELFPAY ==
[2022-07-20 22:38] VITALS: BP 188/113; PULSE 86; PULSE 88; RESP 18; RESP 20; O2SAT 96; O2SAT 98; BMI 24.9
--- NOTE | 2022-07-20 22:43 | DI.RAD.S_ITS ---
PROCEDURE: XR CHEST 1V INDICATIONS: chest pain TECHNIQUE: One view of the chest was acquired. COMPARISON: [facility], CR, XR CHEST 1V, 10/24/2020, 7:36. FINDINGS: Surgical changes and devices: None. Lungs and pleura: Lungs are clear. No pleural effusions or pneumothorax. Mediastinum: Mediastinal contours appear normal. Heart size is normal. Bones and chest wall: No suspicious bony lesions. Overlying soft tissues appear unremarkable. IMPRESSION: 1. No acute cardiopulmonary disease. Dictated by: Hipolito Antonio M.D. on 07/20/2022 at 23:56 Approved by: Hipolito Antonio M.D. on 07/20/2022 at 23:57
--- NOTE | 2022-07-20 22:43 | DI.CT.S_ITS ---
PROCEDURE: CT HEAD/BRAIN WO CON INDICATIONS: left sided numbness x 3 days and ROSE TECHNIQUE: Noncontrast 4.5 mm thick angled axial sections acquired from the foramen magnum to the vertex, with coronal and sagittal reformats. For radiation dose reduction, the following was used: automated exposure control, adjustment of mA and/or kV according to patient size. COMPARISON: None. FINDINGS: Image quality: Excellent. CSF spaces: Basal cisterns are patent. No extra-axial fluid collections. Ventricles are normal in size and shape. Brain: No intracranial hemorrhage, mass, or mass effect. Mccrary-white matter interface appears preserved. Skull and face: Calvarium and visualized facial bones appear intact, without suspicious lesions. Sinuses: Visualized sinuses and mastoids are clear. IMPRESSION: 1. No acute intracranial abnormality. Dictated by: Hipolito Antonio M.D. on 07/20/2022 at 23:51 Approved by: Hipolito Antonio M.D. on 07/20/2022 at 23:56
--- NOTE | 2022-07-20 22:44 | ED_ITS ---
HPI - Headache General Chief Complaint: Headache Stated Complaint: Stroke Like Symptoms Time Seen by Provider: 07/20/22 22:36 Mode of arrival: Ambulatory History of Present Illness HPI Narrative: Patient is a 76-year-old male history of BPH GERD and glaucoma presenting today with 3 days of left-sided numbness and tingling. He has no weakness. No visual changes no speech difficulty. He says that he has had a headache ongoing for the last couple days as well tonight his headache got worse and he was worried he might be having a stroke. He has had a history of migraine headaches he says it is not as bad as a migraine headache. He has no history of hypertension noted to have an elevated blood pressure. He really says that he just has not felt quite well the last 3 days. Related Data Home Medications Medication Instructions Recorded Confirmed alfuzosin 10 mg tablet,extended 10 mg PO DAILY 02/21/21 06/21/21 release 24 hr cholecalciferol (vitamin D3) 50 50 mcg PO DAILY 02/21/21 06/21/21 mcg (2,000 unit) capsule cyanocobalamin (vitamin B-12) 2,500 mcg PO DAILY 02/21/21 06/21/21 2,500 mcg tablet dexlansoprazole 30 mg 30 mg PO DAILY 02/21/21 06/21/21 capsule,biphase delayed release (Dexilant) finasteride 5 mg tablet 5 mg PO DAILY 02/21/21 06/21/21 levothyroxine 25 mcg capsule 25 mcg PO DAILY 02/21/21 06/21/21 brimonidine 0.15 % eye drops 3 drp EYE-BOTH TID 06/21/21 06/21/21 (Alphagan P) Allergies Allergy/AdvReac Type Severity Reaction Status Date / Time No Known Drug Allergies Allergy Verified 06/21/21 07:28 Review of Systems Review of Systems Narrative: GENERAL: Denies chills, fatigue, malaise, fever, sweats, travel HEENT: Denies sinus pain, ear pain, sore throat, difficulty swallowing, neck pain RESPIRATORY: Denies dyspnea, cough, wheezing, hemoptysis, sputum. CARDIOVASCULAR: Denies chest pain, palpitations, orthopnea, edema GASTROINTESTINAL: Denies nausea, vomiting, abdominal pain, diarrhea, cons tipation, melena. : Denies dysuria, frequency, incontinence, hematuria, urinary retention, flank pain. MUSCULOSKELETAL: Denies weakness, joint pain, or bony pain SKIN: No rash, no erythema, no pruritus NEUROLOGIC: See HPI PSYCHIATRIC: No concerning psychosocial issues. 12 point review of systems is negative except for those stated above and HPI Patient History Medical History BPH (benign prostatic hyperplasia) GERD (gastroesophageal reflux disease) Glaucoma Hemorrhoid Laryngopharyngeal reflux (LPR) Surgical History H/O hernia repair History of Kyaw fundoplication Family History Father Diabetes mellitus Mother Cancer Social History household members: none Smoking Status: Never smoker alcohol intake: current Smoking Status: Never smoker alcohol intake frequency: a few times a week Substance Use Type: does not use Exam Initial Vital Signs Initial Vital Signs: Vital Signs Pulse Rate 86 07/20/22 22:38 Respiratory Rate 18 07/20/22 22:38 Blood Pressure 188/113 H 07/20/22 22:38 Pulse Oximetry 96 07/20/22 22:38 Oxygen Delivery Method 07/20/22 22:38 GENERAL: Alert well-appearing 76-year-old male and in no acute distress. HEENT: Head atraumatic,EOMI, pupils reactive, face symmetric, moist mucous membranes neck is supple no meningeal signs CARDIOVASCULAR: Regular rate and rhythm without murmurs, rubs or gallops. RESPIRATORY: Breath sounds equal bilaterally, no wheezes rales or rhonchi. ABDOMEN: Soft, nontender. Normoactive bowel sounds all 4 quadrants. No guarding or rebound. EXTREMITIES: Normal range of motion, no clubbing or edema. Neurovascularly intact NEUROLOGICAL: Alert and oriented x4.Normal gait and speech. Cranial nerves II through XII grossly intact. Good [id number], good wtub-[id number], strength equal bilaterally, no dysarthria or aphasia, sensation in tact to soft touch bilaterally, no visual changes, no facial droop SKIN: Warm, dry, no laceration, no petechiae, no rashes or lesions. Scores NIH Stroke Scale Level of Conciousness: Alert, keenly responsive Ask month/age: Answers both questions correctly. Open/close eyes, close hand: Performs both tasks correctly Best gaze horizontal: Normal Visual solomon: No visual loss Facial palsy: Normal symetrical movement Left arm drift: No drift for full 10 sec Right arm drift: No drift for full 10 sec Left leg drift: No drift for full 5 sec Right leg drift: No drift for full 5 sec Limb ataxia: Absent Sensory on face/arms/legs: Normal, no sensory loss Best language: No aphasia, normal Dysarthria: Normal Extinction or inattention: No abnormality Total NIH Stroke scale score: 0 Course Orders Ordered: ED Orders 07/20/22 22:42 Covid-19 + FLU A/B + RSV - PCR Stat 07/20/22 22:43 CT head/brain wo con Stat XR chest 1V Stat EKG-12 Lead Stat 07/20/22 22:55 Complete Blood Count AUTO DIFF Stat Comprehensive Metabolic Panel Stat Lipase Stat Procalcitonin Stat Troponin & CK Cardiac Panel Stat Discontinued Medications Sodium Chloride (Normal Saline 0.9%) 1,000 mls @ 1,000 mls/hr IV CONT RONNY Last Admin: 07/20/22 23:10 Dose: 1,000 mls/hr Documented By: RB Vital Signs Vital signs: Vital Signs - 8 hr 07/20/22 22:38 07/20/22 22:38 07/20/22 23:07 Pulse Rate 86 88 83 Respiratory Rate 18 20 25 H Blood Pressure 188/113 H Pulse Oximetry 96 98 97 Oxygen Delivery Method Room Air 07/20/22 23:10 07/20/22 23:10 07/20/22 23:15 Pulse Rate 79 Respiratory Rate 19 Blood Pressure 158/96 H 148/88 H Pulse Oximetry 98 Oxygen Delivery Method 07/20/22 23:15 07/20/22 23:30 07/20/22 23:30 Pulse Rate 77 74 Respiratory Rate 16 19 Blood Pressure 148/87 H Pulse Oximetry 97 96 Oxygen Delivery Method 07/20/22 23:45 07/20/22 23:45 07/21/22 00:00 Pulse Rate 81 Respiratory Rate 20 Blood Pressure 169/110 H 166/104 H Pulse Oximetry 98 Oxygen Delivery Method 07/21/22 00:00 07/21/22 00:15 07/21/22 00:15 Pulse Rate 80 74 Respiratory Rate 29 H 15 Blood Pressure 166/93 H Pulse Oximetry 97 98 Oxygen Delivery Method 07/21/22 00:30 07/21/22 00:30 Pulse Rate 72 Respiratory Rate 19 Blood Pressure 172/99 H Pulse Oximetry 97 Oxygen Delivery Method MDM - Headache Lab Data Result diagrams: 07/20/22 22:55 07/20/22 22:55 Labs: Lab Results 07/20/22 07/20/22 07/20/22 Range/Units 22:42 22:55 22:55 WBC 3.9 L (4.5-11.0) X10^3/uL RBC 5.04 (4.5-5.9) X10^6/uL Hgb 16.4 (13.5-17.5) g/dL Hct 46.5 (41-53) % MCV 92.3 (80-100) fL MCH 32.4 (26-34) PG MCHC 35.2 (30-36) % RDW 12.8 (11.6-14.8) % Plt Count 141 L (150-400) X10^3/uL Neut % (Auto) 57.7 (50-75) % Lymph % (Auto) 27.1 (25-40) % [place] % (Auto) 9.9 (3-14) % Eos % (Auto) 4.6 H (2-4) % Baso % (Auto) 0.7 (0-2) % Neut # (Auto) 2200 (6917-7913) /uL Lymph # (Auto) 1100 (4671-8649) /uL [place] # (Auto) 400 (0-900) /uL Eos # (Auto) 200 (0-450) /uL Baso # (Auto) 0 (0-100) /uL Sodium 138 (137-145) mmol/L Potassium 3.9 (3.4-5.1) mmol/L Chloride 102 (98-107) mmol/L Carbon Dioxide 29 (22-32) mmol/L BUN 21 H (9-20) mg/dL Creatinine 1.00 (0.66-1.25) mg/dL Estimated GFR > 60 (>60) mL/min BUN/Creatinine Ratio 21.0 (6-22) Glucose 121 H (80-110) mg/dL Calcium 8.8 (8.4-10.2) mg/dL Total Bilirubin 0.6 (0.2-1.3) mg/dL AST 22 (17-59) IU/L ALT 24 (<50) IU/L Alkaline Phosphatase 77 (38-126) U/L Total Creatine Kinase 92 (55-170) U/L CK-MB (CK-2) TNP CK-MB (CK-2) Rel Index TNP Troponin I < 0.012 (0.01-0.034) ng/mL Total Protein 6.6 (6.3-8.2) g/dL Albumin 4.0 (3.5-5.0) g/dL Globulin 2.6 (1.7-4.1) g/dL Albumin/Globulin Ratio 1.5 (1.0-2.8) Lipase 105 (23-300) U/L Procalcitonin < 0.03 (<0.5) ng/mL SARS-CoV-2 (PCR) Negative (Negative) Influenza A (RT-PCR) Flu a negative (NEGATIVE) Influenza B (RT-PCR) Flu b negative (NEGATIVE) RSV (PCR) Negative (Negative) Imaging Data CT scan - head: Radiologist's Impression: ?Dwaine Cooney MR#: [id number] : 1945 Acct:[id number] Age/Sex: 76 / M Date of Service: 07/20/22 Loc: Accession Number: [id number] ?? Procedure: CT head/brain wo con Ordering Provider: Arlen Mallory D.O. PROCEDURE:? CT HEAD/BRAIN WO CON ? INDICATIONS:? left sided numbness x 3 days and ROSE ? TECHNIQUE:? Noncontrast 4.5 mm thick angled axial sections acquired from the foramen magnum to the vertex, with coronal and sagittal reformats.? For radiation dose reduction, the following was used:? automated exposure control, adjustment of mA and/or kV according to patient size.? ? COMPARISON:? None. ? FINDINGS:? Image quality:? Excellent.? ? CSF spaces:? Basal cisterns are patent.? No extra-axial fluid collections.? Ventricles are normal in size and shape.? ? Brain:? No intracranial hemorrhage, mass, or mass effect.? Mccrary-white matter interface appears preserved.? ? Skull and face:? Calvarium and visualized facial bones appear intact, without suspicious lesions.? ? Sinuses:? Visualized sinuses and mastoids are clear.? ? IMPRESSION:? ? 1.? No acute intracranial abnormality. ? ? Dictated by: Hipolito Antonio M.D. on 07/20/2022 at 23:51 ? ? Approved by: Hipolito Antonio M.D. on 07/20/2022 at 23:56 ? Chest x-ray: Radiologist's Impression: tient: Dwaine Cooney MR#: [id number] : 1945 Acct:[id number] Age/Sex: 76 / M Date of Service: 07/20/22 Loc: ED Accession Number: [id number] ?? Procedure: XR chest 1V Ordering Provider: Arlen Mallory D.O. PROCEDURE:? XR CHEST 1V ? INDICATIONS:? chest pain ? TECHNIQUE:? One view of the chest was acquired.? ? COMPARISON:? [facility], , XR CHEST 1V, 10/24/2020, 7:36. ? FINDINGS:? ? Surgical changes and devices:? None.? ? Lungs and pleura:? Lungs are clear.? No pleural effusions or pneumothorax.? ? Mediastinum:? Mediastinal contours appear normal.? Heart size is normal.? ? Bones and chest wall:? No suspicious bony lesions.? Overlying soft tissues appear unremarkable.? ? IMPRESSION:? ? 1.? No acute cardiopulmonary disease. ? ? ? Dictated by: Hipolito Antonio M.D. on 07/20/2022 at 23:56 ? ? Approved by: Hipolito Antonio M.D. on 07/20/2022 at 23:57 ? ECG Data Interpretation: Normal sinus rhythm rate 83 CO interval 192 QRS [address] changes no T- wave inversions Q-wave noted in the history only new from previous EKG 1 year ago MDM Narrative Medical decision making narrative: Patient really has no focal deficits. Mild headache head CT is negative NIH stroke feels negative. Blood work is overall reassuring. Patient complains of some numbness tingling on the left side but on exam in to light touch he denies any. His really do not think a stroke, certainly does not have large vessel o cclusion signs. He is not having any significant headache. Blood pressure has come down without any sort of intervention. At this time really do not think any further workup is indicated or necessary. COVID RSV and influenza panel is negative. Discharge Plan Departure Patient Disposition: Home Clinical Impression: Headache Activity Restrictions/Additional Instructions: *You have been diagnosed with headache *What to do: At this time her blood work is overall reassuring. It is unlikely that youve had a stroke. Please monitor your blood pressure at home. Discuss with her PCP may remain not need medication *Continue to take medications as directed *Follow up with your primary care provider in 2-3 days or call [phone] *Return to ER if you should have increasing headache weakness chest pain palpitations fever or any new, worsening or concerning symptoms Prescriptions: No Action Dexilant 30 mg capsule,biphase delayed releas 30 mg PO DAILY alfuzosin 10 mg tablet extended release 24 hr 10 mg PO DAILY Rx Instructions: administer after the same meal each day finasteride 5 mg tablet 5 mg PO DAILY Label Comments: pt does not take any more. levothyroxine 25 mcg capsule 25 mcg PO DAILY cyanocobalamin (vitamin B-12) 2,500 mcg tablet 2,500 mcg PO DAILY cholecalciferol (vitamin D3) 50 mcg (2,000 unit) capsule 50 mcg PO DAILY brimonidine [Alphagan P] 0.15 % drops 3 drp EYE-BOTH TID Referrals: Kirill Coburn MD [Primary Care Provider] - Visit Report Forms: Patient Portal/API
[2022-07-20 23:00] LABS: Add Manual Diff / Slide Review NO; Basophils Absolute Auto 0 /uL (0-100); Basophils Percent Auto 0.7 % (0-2); Eosinophils Absolute Auto 200 /uL (0-450); Eosinophils Percent Auto 4.6 % (2-4); Hematocrit 46.5 % (41-53); Hemoglobin 16.4 g/dL (13.5-17.5); Lymphocytes Absolute Auto 1100 /uL (1100-4500); Lymphocytes Percent Auto 27.1 % (25-40); Mean Corpuscular HGB Conc 35.2 % (30-36); Mean Corpuscular Hemoglobin 32.4 PG (26-34); Mean Corpuscular Volume 92.3 fL (80-100); Monocytes Absolute Auto 400 /uL (0-900); Monocytes Percent Auto 9.9 % (3-14); Neutrophils Absolute Auto 2200 /uL (1500-7000); Neutrophils Percent Auto 57.7 % (50-75); Platelet Count 141 X10^3/uL (150-400); Red Blood Cell Count 5.04 X10^6/uL (4.5-5.9); Red Cell Distribution Width 12.8 % (11.6-14.8); White Blood Cell Count 3.9 X10^3/uL (4.5-11.0)
[2022-07-20 23:07] VITALS: PULSE 83; RESP 25; O2SAT 97
[2022-07-20 23:10] VITALS: BP 158/96; PULSE 79; RESP 19; O2SAT 98
[2022-07-20] MEDS: SODIUM CHLORIDE 0.9% 1,000 ML 1000 ML IV (23:10)
[2022-07-20 23:15] VITALS: BP 148/88; PULSE 77; RESP 16; O2SAT 97
[2022-07-20 23:30] VITALS: BP 148/87; PULSE 74; RESP 19; O2SAT 96
[2022-07-20 23:30] LABS: Influenza A - CEPHEID Flu A NEGATIVE (NEGATIVE); Influenza B - CEPHEID Flu B NEGATIVE (NEGATIVE); Respiratory Syncytial Virus Negative (Negative)
--- NOTE | 2022-07-20 23:30 | PC.NURSE ---
Report e=received - assumed care of pt at this time
[2022-07-20 23:33] LABS: COVID-19 CEPHEID 4-PLEX PCR Negative (Negative)
[2022-07-20 23:41] LABS: Alanine Aminotransferase 24 IU/L (<50); Albumin Globulin Ratio 1.5 (1.0-2.8); Alkaline Phosphatase 77 U/L (38-126); Aspartate Aminotransferase 22 IU/L (17-59); Bilirubin Total 0.6 mg/dL (0.2-1.3); Blood Urea Nitrogen 21 mg/dL (9-20); Calcium 8.8 mg/dL (8.4-10.2); Carbon Dioxide 29 mmol/L (22-32); Chloride 102 mmol/L (98-107); Creatine Kinase 92 U/L (55-170); Estimated Glomerular Filt Rate > 60 mL/min (>60); Globulin 2.6 g/dL (1.7-4.1); Glucose 121 mg/dL (80-110); HEMOLYSIS 17 (0-50); Lipase 105 U/L (23-300); Potassium 3.9 mmol/L (3.4-5.1); Sodium 138 mmol/L (137-145); Total Protein 6.6 g/dL (6.3-8.2)
[2022-07-20 23:45] VITALS: BP 169/110; PULSE 81; RESP 20; O2SAT 98
--- NOTE | 2022-07-20 23:52 | PC.NURSE ---
Report received - assumed care of pt at this time
[2022-07-20 23:53] LABS: Troponin I < 0.012 ng/mL (0.01-0.034)
[2022-07-20 23:58] LABS: Procalcitonin < 0.03 ng/mL (<0.5)
[2022-07-21] VITALS: BP 166/104; PULSE 80; RESP 29; O2SAT 97
[2022-07-21 00:15] VITALS: BP 166/93; PULSE 74; RESP 15; O2SAT 98
[2022-07-21 00:30] VITALS: BP 172/99; PULSE 72; RESP 19; O2SAT 97
== END 2022-07-21 00:48 | disposition home or self-care (01) ==
PROVIDERS: Emergency Provider Emergency Medicine; Family Provider Naturopath; PCP Family Medicine
DX: R51.9 Headache, unspecified (principal); R07.9 Chest pain, unspecified; R20.0 Anesthesia of skin; Z20.822 Contact with and (suspected) exposure to COVID-19
CPT/HCPCS: 0241U; 36415; 70450; 71045; 80053; 82550; 82553; 83690; 84145; 84484; 85025; 93005; 99284

== ENCOUNTER → 2023-04-14 12:57 | Outpatient (CLI) | payer MEDICARE, OTHER, SELFPAY ==
--- NOTE | 2023-04-14 | DI.CT.S_ITS ---
PROCEDURE: CT ABDOMEN PELVIS W CON INDICATIONS: Right lower quadrant pain TECHNIQUE: After the administration of oral and intravenous contrast, axial sections were acquired from the lung bases to the pubic symphysis. Coronal and sagittal reformats were performed. For radiation dose reduction, the following was used: automated exposure control, adjustment of mA and/or kV according to patient size. COMPARISON:[facility], MR, MR PELVIS WO/W CON, 06/25/2020, 13:44. FINDINGS: Image quality: Good Lower chest: Basal scarring/atelectasis. Small hiatal hernia. Solid organs: There are liver cysts. Subcentimeter lesions are too small to characterize. Gallbladder is unremarkable. No pathologic dilation of the biliary tree or pancreatic duct. No splenomegaly. No adrenal nodules. No hydronephrosis. Mild perinephric stranding may be senescent. There is a left lower pole renal mass measuring 1.9 cm, previously 1.3 cm. ( The left renal vein is patent. Vessels and lymph nodes: Atherosclerotic disease, without abdominal aortic aneurysm. Retroaortic left renal vein. No pathologic lymph nodes by size criteria. Bowel and peritoneum: There is proximal gastric wall thickening, difficult to evaluate due to under distension. Duodenal diverticulum. Moderate to large colorectal stool burden. Appendix appears nondilated. Fecal material in the distal ileum indicating slow transit time. Body wall: Suspected postsurgical changes of the inguinal regions. Small left inguinal hernia. Pelvis: Left bladder diverticulum again seen. Prostatomegaly and heterogeneity, not well evaluated on this study. Correlate with PSA. Bones: Degenerative changes, no acute or suspicious osseous finding. Similar L2 wedging and retrolisthesis.1 IMPRESSION: No evidence of small bowel obstruction, intra-abdominal abscess, or pathologic ascites. Appendix is nondilated. Moderate to large fecal loading. Additional fecal material in the distal ileum suggestive of slow transit time. Suspected slowly enlarging left renal cell carcinoma in the left lower pole. Consider renal protocol CT or MRI follow-up. Small hiatal hernia. Proximal gastric wall thickening, difficult to evaluate due to under distension. Correlate with any symptoms. This could also be further evaluated with cystoscopy. Prostatomegaly, heterogeneity, and bladder findings suggestive of chronic obstruction. Correlate with PSA, and MRI and cystoscopy if needed. Other findings as above. Dictated by: Mumtaz Andres M.D. on 04/14/2023 at 17:06 Approved by: Mumtaz Andres M.D. on 04/14/2023 at 17:15
== END ==
PROVIDERS: Family Provider Naturopath; PCP Family Medicine; Referring Provider Family Medicine; Visit Provider Family Medicine
DX: K76.89 Other specified diseases of liver (principal); K40.90 Unilateral inguinal hernia, without obstruction or gangrene, not specified as recurrent; R10.31 Right lower quadrant pain; K44.9 Diaphragmatic hernia without obstruction or gangrene; N32.3 Diverticulum of bladder; N40.0 Benign prostatic hyperplasia without lower urinary tract symptoms
CPT/HCPCS: 74177; Q9967

== ENCOUNTER → 2023-04-22 09:13 | Outpatient (CLI) | payer MEDICARE, OTHER, SELFPAY ==
--- NOTE | 2023-04-22 | DI.MRI.S_ITS ---
PROCEDURE: MR ABDOMEN RENAL PROTOCOL INDICATIONS: LEFT RENAL MASS TECHNIQUE: Coronal HASTE through abdomen and pelvis; axial 2D FLASH in- and [id number] (with and without fat saturation), and breath-hold T2 FSE from the hepatic dome to the bottom of the kidneys. Coronal HASTE MR urogram of kidneys and bladder. Dynamic coronal VIBE during IV gadolinium administration; postgadolinium axial VIBE or 2D FLASH with fat saturation from the hepatic dome through the kidneys. COMPARISON: [facility], CT, CT ABDOMEN PELVIS WO/W CON, 06/14/2020, 14:07. [facility], CT, CT ABDOMEN PELVIS W CON, 04/14/2023, 14:26. FINDINGS: Image quality: Suboptimal due to motion artifact. Genitourinary system: Approximately 2.0 x 1.9 cm mass redemonstrated at the left inferior kidney (for example series 16, image 82). Approximate dimensions on the [address] CT of 1.8 x 1.9 cm remeasured. The finding is heterogeneous but overall intermediate in T2 signal, without intrinsic T1 hyperintensity. The finding appears T1 hypointense. Suspect presence of predominantly peripheral enhancement on postcontrast images, with central hypointensity/hypoenhancement. Signal loss within the finding on out of phase images compatible with sub-voxel fat, nonspecific, can be seen in the setting of clear cell subtype renal cell carcinoma but other etiologies are also possible. The finding does not definitively encroach on the renal sinus fat. No hydronephrosis bilaterally. Other solid organs: No suspicious liver lesion identified. No gallstones visualized. No biliary ductal dilation. Unremarkable pancreas, spleen, adrenal glands. Nodes and vessels: No highly suspicious lymph nodes identified. No abdominal aortic aneurysm. Bowel and peritoneum: Visualized large and small bowel is non-dilated. No substantial free fluid. Small hiatal hernia. Lung bases: No pleural effusion. IMPRESSION: Redemonstrated approximately 2.0 cm mass at the inferior left kidney, similar to minimally increased in size since 2019 allowing for differences in exam modality. The finding appears solid, with mild enhancement suspected however much of the finding appears hypo- or nonenhancing. The finding is suspicious for neoplasm such as renal cell carcinoma but other etiologies are not excluded. Dictated by: Mu Rodriguez M.D. on 04/22/2023 at 16:36 Approved by: Mu Rodriguez M.D. on 04/22/2023 at 17:21
== END ==
PROVIDERS: Family Provider Naturopath; PCP Family Medicine; Referring Provider Family Medicine; Visit Provider Family Medicine
DX: N28.89 Other specified disorders of kidney and ureter (principal); K44.9 Diaphragmatic hernia without obstruction or gangrene
CPT/HCPCS: 74183; A9579

== ENCOUNTER → 2023-12-21 07:06 | Outpatient (CLI) | payer MEDICARE, OTHER, SELFPAY ==
--- NOTE | 2023-12-21 07:07 | DI.US.S_ITS ---
PROCEDURE: US RETROPERITONEAL COMP COMPARISON: [facility], CT, CT ABDOMEN PELVIS W CON, 04/14/2023, 14:26. INDICATIONS: Other specified disorders of kidney and ureter FINDINGS: Ultrasound demonstrates no hydronephrosis or nephrolithiasis bilaterally. Bilateral kidneys demonstrate normal size and echogenicity measuring 11.9 cm on the right and 11.4 cm on the left. There is a hyperechoic mass with internal vascularity in the left interpolar region measuring 1.6 x 1.8 x 1.7 cm. This measured 1.6 x 1.7 x [address] dated April 14, 2023. Bladder is decompressed, limiting evaluation, with no definite sonographic evidence of mass or stone. IMPRESSION: 1. Left interpolar hyperechoic mass measuring 1.6 x 1.8 x 1.7 cm which appear stable in size compared to CT dated April 14, 2023. Findings remain suspicious for a renal cell carcinoma. Recommend a CT or MRI (renal mass protocol) for further evaluation. 2. Bladder is decompressed, limiting evaluation. Dictated by: Hanny Perez M.D. on 12/21/2023 at 11:58 Approved by: Hanny Perez M.D. on 12/21/2023 at 12:02
== END ==
LOC: US 07:06
PROVIDERS: Family Provider Naturopath; PCP Family Medicine; Referring Provider Urology; Visit Provider Urology
DX: N28.89 Other specified disorders of kidney and ureter (principal)
CPT/HCPCS: 76770

== ENCOUNTER → 2024-01-01 06:34 | Outpatient (CLI) | payer MEDICARE, OTHER, SELFPAY ==
--- NOTE | 2024-01-01 06:36 | DI.US.S_ITS ---
PROCEDURE: US SCROTUM INDICATIONS: TESTICULAR MASS TECHNIQUE: Real-time scanning was performed of the scrotum and testicles, with image documentation. Color and pulse Doppler interrogation was performed of both testicles. COMPARISON: None. FINDINGS: Right: Testicle is normal in size at 5.6 x 2.7 x 3.8 cm, and homogenous in echotexture. Epididymis is normal in overall size and morphology. No hydrocele or varicoceles. Overlying scrotal skin is normal in thickness. Left: Testicle is normal in size at 5.3 x 2.0 x 3.7 cm, and homogeneous in echotexture. Prominent right T testes. Epididymis is normal in overall size and morphology. No hydrocele or varicoceles. Overlying scrotal skin is normal in thickness. Doppler: Color and pulse Doppler demonstrate normal and symmetric arterial flow in both testicles. There is a small left inguinal hernia containing fat at the site of pain. This measures approximately 2.4 x 1.0 x 1.0 cm. IMPRESSION: Small , reducible left inguinal hernia containing fat. This measures approximately 2.4 x 1.0 x 1.0 cm. Otherwise, normal testicular ultrasound. Dictated by: Christopher Calvillo M.D. on 01/01/2024 at 10:07 Approved by: Christopher Calvillo M.D. on 01/01/2024 at 10:08
== END ==
LOC: US 06:36
PROVIDERS: Family Provider Naturopath; PCP Family Medicine; Referring Provider Urology; Visit Provider Urology
DX: N50.89 Other specified disorders of the male genital organs (principal); K40.90 Unilateral inguinal hernia, without obstruction or gangrene, not specified as recurrent
CPT/HCPCS: 76870; 93975

== ENCOUNTER 2024-02-15 06:14 | Emergency (ER) | payer MEDICARE, OTHER, SELFPAY ==
--- NOTE | 2024-02-15 06:19 | EKG_ITS ---
[facility] [address] [place] [address] Test Date: 2024-02-15 Pat Name: Dwaine Cooney Department: [facility] Room: Gender: Male Supervisor [employer]: AMY BOCANEGRA : 1945 Requested By: Order Number: [id number] Reading MD: Julio Cesar Rodriguez Measurements Intervals [place] Rate: 86 P: 24 HI: 172 QRS: -29 QRSD: 86 T: 27 QT: 352 QTc: 421 Interpretive Statements Normal sinus rhythm Minimal voltage criteria for LVH, may be normal variant ( R in aVL ) Cannot rule out Anterior infarct , age undetermined Electronically Signed On 02-15-2024 16:37:21 PDT by Julio Cesar Rodriguez
[2024-02-15 06:24] VITALS: BP 182/97; PULSE 93; RESP 17; TEMP 36.6; O2SAT 97; BMI 31.0
--- NOTE | 2024-02-15 06:27 | DI.RAD.S_ITS ---
PROCEDURE: XR CHEST 1V INDICATIONS: DYSPNEA, L SHOULDER PAIN TECHNIQUE: One view of the chest was acquired. COMPARISON: [facility], CR, XR CHEST 1V, 07/20/2022, 22:46. FINDINGS: Surgical changes and devices: None. Lungs and pleura: Lungs are clear. No pleural effusions or pneumothorax. Mediastinum: Mediastinal contours appear normal. Heart size is normal. Bones and chest wall: No suspicious bony lesions. Overlying soft tissues appear unremarkable. IMPRESSION: No acute cardiopulmonary abnormality is seen. 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 Dictated by: Whitney Villafana M.D. on 02/15/2024 at 8:32 Approved by: Whitney Villafana M.D. on 02/15/2024 at 8:32
--- NOTE | 2024-02-15 06:27 | ED_ITS ---
HPI - SOB/Dyspnea <Elina Hopkins MD - Last Filed: 02/15/24 23:44> General Chief Complaint: Chest Pain Stated Complaint: SOB, pain in left shoulder Time Seen by Provider: 02/15/24 06:15 History of Present Illness HPI Narrative: 78-year-old male with history of BPH, acid reflux, mild hypothyroidism presents for evaluation of 3 days of shortness of breath and intermittent, sharp, nonradiating left shoulder pain. Patient states that he was walking around his home when he began to experience shoulder pain. Reports mild chronic shortness of breath, he states that several years ago he had pulmonary function testing that showed he had a ?20% decrease? in his function. Patient states that this morning he was gurgling his symptoms and it said that his symptoms may be congestive heart failure. He was concerned that he may be developing this condition and decided to present to the ER for evaluation. Patient denies chest pain currently, denies leg swelling, orthopnea, paroxysmal nocturnal dyspnea, history of cardiac problems or known history of congestive heart failure. Patient had nuclear stress test performed 10/30/2020 that was normal. Related Data Home Medications Medication Instructions Recorded Confirmed alfuzosin 10 mg tablet,extended 10 mg PO DAILY 02/21/21 06/21/21 release 24 hr cholecalciferol (vitamin D3) 50 50 mcg PO DAILY 02/21/21 06/21/21 mcg (2,000 unit) capsule cyanocobalamin (vitamin B-12) 2,500 mcg PO DAILY 02/21/21 06/21/21 2,500 mcg tablet dexlansoprazole 30 mg 30 mg PO DAILY 02/21/21 06/21/21 capsule,biphase delayed release (Dexilant) finasteride 5 mg tablet 5 mg PO DAILY 02/21/21 06/21/21 levothyroxine 25 mcg capsule 25 mcg PO DAILY 02/21/21 06/21/21 brimonidine 0.15 % eye drops 3 drp EYE-BOTH TID 06/21/21 06/21/21 (Alphagan P) Allergies Allergy/AdvReac Type Severity Reaction Status Date / Time No Known Drug Allergies Allergy Verified 06/21/21 07:28 <Papito Tilley DO - Last Filed: 02/15/24 07:43> History of Present Illness HPI Narrative: 78-year-old male with history of BPH, acid reflux, mild hypothyroidism presents for evaluation of 3 days of shortness of breath and intermittent, sharp, nonradiating left shoulder pain. Patient states that he was walking around his home when he began to experience shoulder pain. Reports mild chronic shortness of breath, he states that several years ago he had pulmonary function testing that showed he had a ?20% decrease? in his function. Patient states that this morning he was googling his symptoms and it said that his symptoms may be congestive heart failure. He was concerned that he may be developing this condition and decided to present to the ER for evaluation. Patient denies chest pain currently, denies leg swelling, orthopnea, paroxysmal nocturnal dyspnea, history of cardiac problems or known history of congestive heart failure. Patient had nuclear stress test performed 10/30/2020 that was normal. Patient History <Elina Hopkins MD - Last Filed: 02/15/24 23:44> Medical History Hemorrhoid Laryngopharyngeal reflux (LPR) BPH (benign prostatic hyperplasia) Glaucoma GERD (gastroesophageal reflux disease) Surgical History H/O hernia repair History of Kyaw fundoplication Family History Father Diabetes mellitus Mother Cancer Social History household members: none Smoking Status: Never smoker alcohol intake: current Smoking Status: Never smoker alcohol intake frequency: a few times a week Substance Use Type: does not use Exam <Elina Hopkins MD - Last Filed: 02/15/24 23:44> Initial Vital Signs Initial Vital Signs: Vital Signs Temperature 97.8 F 02/15/24 06:24 Pulse Rate 93 H 02/15/24 06:24 Respiratory Rate 17 02/15/24 06:24 Blood Pressure 182/97 H 02/15/24 06:24 Pulse Oximetry 97 02/15/24 06:24 Oxygen Delivery Method Room Air 02/15/24 06:24 Const: Awake, alert, no acute distress, nontoxic appearing Cardiac: regular rate, regular rhythm RESP: unlabored, clear bilaterally, no wheezing GI: Soft, nontender, nondistended, no rebound, no guarding MSK: Atraumatic, full range of motion, pulses equal, no edema Skin: Warm, Dry, intact, no rashes Neuro: AO x3, CN II-XII grossly intact, moves all extremities <Papito Tilley DO - Last Filed: 02/15/24 07:43> Initial Vital Signs Initial Vital Signs: Vital Signs Temperature 97.8 F 02/15/24 06:24 Pulse Rate 93 H 02/15/24 06:24 Respiratory Rate 17 02/15/24 06:24 Blood Pressure 182/97 H 02/15/24 06:24 Pulse Oximetry 97 02/15/24 06:24 Oxygen Delivery Method Room Air 02/15/24 06:24 Course <Elina Hopkins MD - Last Filed: 02/15/24 23:44> Orders Ordered: ED Orders 02/15/24 06:19 EKG-12 Lead Stat 02/15/24 06:27 Chest [XR chest 1V] Stat EKG-12 Lead Stat 02/15/24 06:37 BNP [NT-proBNP (BNP-Adult 18+)] Stat CBC Auto Diff [Complete Blood Count AUTO DIFF] Stat CMP [Comprehensive Metabolic Panel] Stat D Dimer Stat Troponin & CK Cardiac Panel Stat Vital Signs Vital signs: Vital Signs - 8 hr 02/15/24 06:24 02/15/24 06:36 02/15/24 07:00 Temperature 97.8 F Pulse Rate 93 H 84 Respiratory Rate 17 18 Blood Pressure 182/97 H 148/87 H Pulse Oximetry 97 98 Oxygen Delivery Method Room Air 02/15/24 07:00 Temperature Pulse Rate 86 Respiratory Rate 19 Blood Pressure Pulse Oximetry 95 Oxygen Delivery Method <Papito Tilley DO - Last Filed: 02/15/24 07:43> Orders Ordered: ED Orders 02/15/24 06:19 EKG-12 Lead Stat 02/15/24 06:27 Chest [XR chest 1V] Stat EKG-12 Lead Stat 02/15/24 06:37 BNP [NT-proBNP (BNP-Adult 18+)] Stat CBC Auto Diff [Complete Blood Count AUTO DIFF] Stat CMP [Comprehensive Metabolic Panel] Stat D Dimer Stat Troponin & CK Cardiac Panel Stat Vital Signs Vital signs: Vital Signs - 8 hr 02/15/24 06:24 02/15/24 06:36 02/15/24 07:00 Temperature 97.8 F Pulse Rate 93 H 84 Respiratory Rate 17 18 Blood Pressure 182/97 H 148/87 H Pulse Oximetry 97 98 Oxygen Delivery Method Room Air 02/15/24 07:00 Temperature Pulse Rate 86 Respiratory Rate 19 Blood Pressure Pulse Oximetry 95 Oxygen Delivery Method MDM - SOB/Dyspnea <Elina Hopkins MD - Last Filed: 02/15/24 23:44> Lab Data 02/15/24 06:37 02/15/24 06:37 Labs: Lab Results 02/15/24 Range/Units 06:37 WBC 4.6 (4.5-11.0) X10^3/uL RBC 4.99 (4.5-5.9) X10^6/uL Hgb 16.3 (13.5-17.5) g/dL Hct 46.9 (41-53) % MCV 94.0 (80-100) fL MCH 32.7 (26-34) PG MCHC 34.7 (30-36) % RDW 12.7 (11.6-14.8) % Plt Count 147 L (150-400) X10^3/uL Neut % (Auto) 75.4 H (50-75) % Lymph % (Auto) 14.8 L (25-40) % [place] % (Auto) 7.1 (3-14) % Eos % (Auto) 2.1 (2-4) % Baso % (Auto) 0.6 (0-2) % Neut # (Auto) 3500 (1119-1179) /uL Lymph # (Auto) 700 L (9220-7070) /uL [place] # (Auto) 300 (0-900) /uL Eos # (Auto) 100 (0-450) /uL Baso # (Auto) 0 (0-100) /uL D-Dimer 467 (<500) ng/ml Sodium 136 L (137-145) mmol/L Potassium 4.2 (3.4-5.1) mmol/L Chloride 105 (98-107) mmol/L Carbon Dioxide 27 (22-32) mmol/L BUN 16 (9-20) mg/dL Creatinine 0.90 (0.66-1.25) mg/dL Estimated GFR > 60 (>60) mL/min BUN/Creatinine Ratio 17.8 (6-22) Glucose 130 H (80-110) mg/dL Calcium 8.7 (8.4-10.2) mg/dL Total Bilirubin 0.9 (0.2-1.3) mg/dL AST 25 (17-59) IU/L ALT 21 (<50) IU/L Alkaline Phosphatase 68 (38-126) U/L Total Creatine Kinase 108 (55-170) U/L Troponin I < 0.012 (0.01-0.034) ng/mL NT-Pro-B Natriuret Pep 39 (<450) pg/mL Total Protein 7.0 (6.3-8.2) g/dL Albumin 4.3 (3.5-5.0) g/dL Globulin 2.7 (1.7-4.1) g/dL Albumin/Globulin Ratio 1.6 (1.0-2.8) ECG Data Interpretation: Normal sinus rhythm at 86 beats per minute. Normal MI, no ST T wave changes, no STEMI MDM Narrative Medical decision making narrative: Well-appearing patient presenting with 3 days of symptoms. Presenting today because he could go his symptoms and is concerned that he may be developing congestive heart failure. There was no pulmonary edema, lungs are clear to auscultation bilaterally, he was saturating well on room air, speaking in complete sentences without dyspnea. EKG normal sinus rhythm without ischemia. Laboratory work and chest x-ray imaging ordered. Since patient is over the age of 50 can not use PERC rule to rule out PE and D-dimer will be ordered. Care of patient is signed out to Dr. Tilley at 0700 Dr tilley: Received turned over. Review patient's history and physical exam and workup up to this point. Troponin is negative. D-dimer is negative. Chest x-ray is unremarkable. EKG is nonischemic. BNP is negative. Patient is not clinically in heart failure. I discussed all this with the patient. Advised that he contact his primary care doctor to discuss the indications for repeat stress testing or even pulmonary function testing. He was given return precautions. <Papito Tilley, DO - Last Filed: 02/15/24 07:43> Lab Data Labs: Lab Results 02/15/24 Range/Units 06:37 WBC 4.6 (4.5-11.0) X10^3/uL RBC 4.99 (4.5-5.9) X10^6/uL Hgb 16.3 (13.5-17.5) g/dL Hct 46.9 (41-53) % MCV 94.0 (80-100) fL MCH 32.7 (26-34) PG MCHC 34.7 (30-36) % RDW 12.7 (11.6-14.8) % Plt Count 147 L (150-400) X10^3/uL Neut % (Auto) 75.4 H (50-75) % Lymph % (Auto) 14.8 L (25-40) % [place] % (Auto) 7.1 (3-14) % Eos % (Auto) 2.1 (2-4) % Baso % (Auto) 0.6 (0-2) % Neut # (Auto) 3500 (4537-1093) /uL Lymph # (Auto) 700 L (5138-7788) /uL [place] # (Auto) 300 (0-900) /uL Eos # (Auto) 100 (0-450) /uL Baso # (Auto) 0 (0-100) /uL D-Dimer 467 (<500) ng/ml Sodium 136 L (137-145) mmol/L Potassium 4.2 (3.4-5.1) mmol/L Chloride 105 (98-107) mmol/L Carbon Dioxide 27 (22-32) mmol/L BUN 16 (9-20) mg/dL Creatinine 0.90 (0.66-1.25) mg/dL Estimated GFR > 60 (>60) mL/min BUN/Creatinine Ratio 17.8 (6-22) Glucose 130 H (80-110) mg/dL Calcium 8.7 (8.4-10.2) mg/dL Total Bilirubin 0.9 (0.2-1.3) mg/dL AST 25 (17-59) IU/L ALT 21 (<50) IU/L Alkaline Phosphatase 68 (38-126) U/L Total Creatine Kinase 108 (55-170) U/L Troponin I < 0.012 (0.01-0.034) ng/mL NT-Pro-B Natriuret Pep 39 (<450) pg/mL Total Protein 7.0 (6.3-8.2) g/dL Albumin 4.3 (3.5-5.0) g/dL Globulin 2.7 (1.7-4.1) g/dL Albumin/Globulin Ratio 1.6 (1.0-2.8) MDM Narrative Medical decision making narrative: Well-appearing patient presenting with 3 days of symptoms. Presenting today because he could go his symptoms and is concerned that he may be developing congestive heart failure. There was no pulmonary edema, lungs are clear to auscultation bilaterally, he was saturating well on room air, speaking in complete sentences without dyspnea. EKG normal sinus rhythm without ischemia. Laboratory work and chest x-ray imaging ordered. Since patient is over the age of 50 can not use PERC rule to rule out PE and D-dimer will be ordered. Dr tilley: Received turned over. Review patient's history and physical exam and workup up to this point. Troponin is negative. D-dimer is negative. Chest x-ray is unremarkable. EKG is nonischemic. BNP is negative. Patient is not clinically in heart failure. I discussed all this with the patient. Advised that he contact his primary care doctor to discuss the indications for repeat stress testing or even pulmonary function testing. He was given return precautions. Discharge Plan Departure Patient Disposition: Home Clinical Impression: Atypical chest pain, Shortness of breath Instructions: DI for Atypical Chest Pain Activity Restrictions/Additional Instructions: Continue to take all of your medications as directed. I do recommend that you follow-up with your primary care doctor to discuss the indications for a stress test. Return to the emergency department for new or worsening symptoms. Prescriptions: No Action Dexilant 30 mg capsule,biphase delayed releas 30 mg PO DAILY alfuzosin 10 mg tablet extended release 24 hr 10 mg PO DAILY Rx Instructions: administer after the same meal each day finasteride 5 mg tablet 5 mg PO DAILY Patient Comments: pt does not take any more. levothyroxine 25 mcg capsule 25 mcg PO DAILY cyanocobalamin (vitamin B-12) 2,500 mcg tablet 2,500 mcg PO DAILY cholecalciferol (vitamin D3) 50 mcg (2,000 unit) capsule 50 mcg PO DAILY brimonidine [Alphagan P] 0.15 % drops 3 drp EYE-BOTH TID Referrals: Chad Reardon MD [Primary Care Provider] - Stand Alone Forms: Patient Portal/API
[2024-02-15 06:36] VITALS: PULSE 84; RESP 18; O2SAT 98
[2024-02-15 06:44] LABS: Add Manual Diff / Slide Review NO; Basophils Absolute Auto 0 /uL (0-100); Basophils Percent Auto 0.6 % (0-2); Eosinophils Absolute Auto 100 /uL (0-450); Eosinophils Percent Auto 2.1 % (2-4); Hematocrit 46.9 % (41-53); Hemoglobin 16.3 g/dL (13.5-17.5); Lymphocytes Absolute Auto 700 /uL (1100-4500); Lymphocytes Percent Auto 14.8 % (25-40); Mean Corpuscular HGB Conc 34.7 % (30-36); Mean Corpuscular Hemoglobin 32.7 PG (26-34); Monocytes Absolute Auto 300 /uL (0-900); Monocytes Percent Auto 7.1 % (3-14); Neutrophils Absolute Auto 3500 /uL (1500-7000); Neutrophils Percent Auto 75.4 % (50-75); Platelet Count 147 X10^3/uL (150-400); Red Blood Cell Count 4.99 X10^6/uL (4.5-5.9); Red Cell Distribution Width 12.7 % (11.6-14.8); White Blood Cell Count 4.6 X10^3/uL (4.5-11.0)
--- NOTE | 2024-02-15 06:44 | PC.NURSE ---
Pt reports that he has partial lung capacity, uses Albuterol inhaler as needed. However, he has not used in a long time.
[2024-02-15 07:00] VITALS: BP 148/87; PULSE 86; RESP 19; O2SAT 95
[2024-02-15 07:00] LABS: Alanine Aminotransferase 21 IU/L (<50); Albumin 4.3 g/dL (3.5-5.0); Albumin Globulin Ratio 1.6 (1.0-2.8); Alkaline Phosphatase 68 U/L (38-126); Aspartate Aminotransferase 25 IU/L (17-59); BUN Creatinine Ratio 17.8 (6-22); Bilirubin Total 0.9 mg/dL (0.2-1.3); Blood Urea Nitrogen 16 mg/dL (9-20); Calcium 8.7 mg/dL (8.4-10.2); Carbon Dioxide 27 mmol/L (22-32); Chloride 105 mmol/L (98-107); Creatine Kinase 108 U/L (55-170); D Dimer 467 ng/ml (<500); Estimated Glomerular Filt Rate > 60 mL/min (>60); Globulin 2.7 g/dL (1.7-4.1); Glucose 130 mg/dL (80-110); HEMOLYSIS 18 (0-50); Potassium 4.2 mmol/L (3.4-5.1); Sodium 136 mmol/L (137-145)
[2024-02-15 07:12] LABS: NT-proBNP (BNP-Adult 18+) 39 pg/mL (<450); Troponin I < 0.012 ng/mL (0.01-0.034)
[2024-02-15 07:30] VITALS: BP 164/101; PULSE 94; RESP 22; O2SAT 95
[2024-02-15 08:00] VITALS: TEMP 37.1
== END 2024-02-15 08:01 | disposition home or self-care (01) ==
PROVIDERS: Emergency Medicine; Emergency Provider Emergency Medicine; Family Provider Naturopath; PCP Family Medicine
DX: R07.89 Other chest pain (principal); R06.02 Shortness of breath; M25.512 Pain in left shoulder
CPT/HCPCS: 36415; 71045; 80053; 82550; 83880; 84484; 85025; 85379; 93005; 99283; 99284

== ENCOUNTER → 2024-12-08 06:43 | Outpatient (CLI) | payer MEDICARE, OTHER, SELFPAY ==
--- NOTE | 2024-12-08 06:45 | DI.US.S_ITS ---
PROCEDURE: US RENAL COMPLETE INDICATIONS: LEFT RENAL MASS TECHNIQUE: Real-time scanning was performed of the kidneys and bladder, with image documentation. COMPARISON: [facility], US, US RETROPERITONEAL COMP, 12/21/2023, 7:17. [facility], CT, CT ABDOMEN PELVIS W CON, 04/14/2023, 14:26. [facility], MR, MR ABDOMEN RENAL PROTOCOL, 04/22/2023, 9:36. FINDINGS: Kidneys: Kidneys are normal in size. Right kidney measures 12.8 cm long; left kidney measures 11.6 cm long. Right renal cortical thickness is 2.0 cm; left renal cortical thickness is 1.7 cm. Renal cortical echotexture is normal. No hydronephrosis or obstructive urolithiasis. Multiple bilateral punctate echogenic foci are present, likely representing nonobstructive calculi. At the left inferior lateral pole, there is a 1.8 x 1.9 x 1.8 cm round, hyperechoic lesion with mild internal vascularity. Bladder: Pre-void bladder volume is 118 mL. Post-void residual is 110 mL. Pre-void images demonstrate no intraluminal masses or stones. On pre-void images, the right ureteral jet is noted with color Doppler interrogation; the left jet is not identified. (Of note, ureteral jets may not be detectable in up to 25% of cases due to insufficient differences in specific gravity between ureteral and bladder urine). There are 2 bladder diverticula along the left left side, measuring 1.8 x 1.5 x 1.2 cm at the superior dome and 1.7 x 1.6 x 1.4 cm at the left lateral wall. Miscellaneous: No free pelvic fluid. IMPRESSION: 1. 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 Urological consultation would be recommended for further evaluation. Alternatively, interventional radiology consultation could be considered for ablation. 2. Bilateral punctate nonobstructive calyceal nephrolithiasis. 3. Moderate postvoid residual with 2 left-sided bladder diverticula. Dictated by: Chu Harper M.D. on 12/08/2024 at 15:09 Approved by: Chu Harper M.D. on 12/08/2024 at 15:22
== END ==
LOC: US 06:44
PROVIDERS: Family Provider Naturopath; PCP Family Medicine; Referring Provider Family Medicine; Visit Provider Family Medicine
DX: N28.89 Other specified disorders of kidney and ureter (principal); N32.3 Diverticulum of bladder; R39.198 Other difficulties with micturition; N20.0 Calculus of kidney
CPT/HCPCS: 76770

== ENCOUNTER → 2025-02-01 07:09 | Outpatient (CLI) | payer MEDICARE, OTHER, SELFPAY ==
--- NOTE | 2025-02-01 07:12 | DI.RAD.S_ITS ---
PROCEDURE: XR SACRUM COCCYX MIN 2V INDICATIONS: BACK PAIN TECHNIQUE: 3 views of the sacrum and coccyx acquired. COMPARISON: None. FINDINGS: Bones: There are no osseous abnormalities. SI and hip joints: Minimal degeneration both SI and hip joints appreciated. Moderate L5-S1 degenerative disc facet disease . Soft tissues: No soft tissue swelling, calcification or mass. IMPRESSION: Degeneration. Dictated by: Dwaine Levy M.D. on 02/02/2025 at 11:56 Approved by: Dwaine Levy M.D. on 02/02/2025 at 11:57
== END ==
PROVIDERS: Family Provider Naturopath; PCP Family Medicine; Referring Provider Family Medicine; Visit Provider Family Medicine
DX: M46.1 Sacroiliitis, not elsewhere classified (principal); M47.817 Spondylosis without myelopathy or radiculopathy, lumbosacral region
CPT/HCPCS: 72220

== ENCOUNTER → 2025-03-22 17:05 | Outpatient (CLI) | payer MEDICARE, OTHER, SELFPAY ==
--- NOTE | 2025-03-22 17:08 | DI.MRI.S_ITS ---
PROCEDURE: MR HEAD/BRAIN WO/W CON INDICATIONS: HEADACHES TECHNIQUE: Noncontrast axial T1 spin echo, axial T2 fast spin echo, sagittal and axial FLAIR, coronal T2 fast spin echo, axial gradient echo, axial diffusion and ADC through the brain. After the administration of contrast, axial and coronal and sagittal 3D VIBE or T1 spin echo with fat saturation through the brain. COMPARISON: None. FINDINGS: CSF Spaces: Basal cisterns are patent. No extra-axial fluid collections. Ventricles are normal in size and shape. Brain: No intracranial masses or hemorrhage. Mccrary/white matter interface is normal. Brainstem appears normal. Diffusion-weighted sequence is unremarkable without evidence of acute infarct. Normal intravascular flow voids are present. Arising from the sella, there is a homogeneous enhancing mass lesion extending into the suprasellar cistern measuring overall 2.0 x 1.1 x 1.6 cm. There is thinning and displacement of the optic chiasm. Appropriate flow voids of the cavernous segment ICA noted. No obvious cavernous sinus invasion. Skull and face: Calvarial marrow is normal in signal. Orbits appear normal. Sinuses: Sinuses and mastoids appear clear. 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 Neurosurgical consultation advised Approved by: Garcia Vásquez M.D. on 03/23/2025 at 9:50
== END ==
LOC: MRI 17:06
PROVIDERS: Family Provider Naturopath; PCP Family Medicine; Referring Provider Family Medicine; Visit Provider Family Medicine
DX: G44.52 New daily persistent headache (NDPH) (principal); G93.89 Other specified disorders of brain
CPT/HCPCS: 70553; A9579

== ENCOUNTER → 2025-05-16 08:04 | Outpatient (CLI) | payer MEDICARE, OTHER, SELFPAY | PROVIDERS: Family Provider Naturopath; PCP Family Medicine; Referring Provider Internal Medicine Endocrinology, Diabetes & Metabolism; Visit Provider Internal Medicine Endocrinology, Diabetes & Metabolism | DX: D35.2 Benign neoplasm of pituitary gland (principal) | CPT/HCPCS: 36415; 82533 ==

== ENCOUNTER → 2025-06-01 07:09 | Outpatient (CLI) | payer MEDICARE, OTHER, SELFPAY ==
[2025-06-01 08:17] LABS: Sodium 135 mmol/L (137-145)
== END ==
PROVIDERS: Family Provider Naturopath; PCP Family Medicine
DX: D35.2 Benign neoplasm of pituitary gland (principal)
CPT/HCPCS: 36415; 84295

== ENCOUNTER → 2025-06-20 08:11 | Outpatient (CLI) | payer MEDICARE, OTHER, SELFPAY ==
[2025-06-20 09:21] LABS: Free T3, Triiodothyronine Free 3.56 pg/mL (2.77-5.27); T4 Total Thyroxine 7.78 ug/dL (5.5-11.0)
[2025-06-20 10:04] LABS: Sodium 139 mmol/L (137-145)
== END ==
PROVIDERS: Family Provider Naturopath; PCP Family Medicine; Referring Provider Family Medicine
DX: D35.2 Benign neoplasm of pituitary gland (principal)
CPT/HCPCS: 36415; 82533; 84146; 84295; 84305; 84402; 84403; 84436; 84481

== ENCOUNTER → 2025-08-02 15:43 | Outpatient (CLI) | payer MEDICARE, OTHER, SELFPAY ==
--- NOTE | 2025-08-02 15:44 | DI.US.S_ITS ---
PROCEDURE: US THYROID INDICATIONS: THYROID NODULE TECHNIQUE: Real-time scanning was performed of the thyroid gland, with image documentation. COMPARISON: [facility], US, US THYROID, 08/14/2020, 10:50. FINDINGS: Thyroid: Right lobe measures 4.6 x 1.8 x 2.0 cm. Left lobe measures 3.8 x 2.1 x 2.6 cm. Isthmus is 0.3 cm thick. Echotexture is homogeneous.. Nodule number: 1 Location: Right lower pole Size: 1.0 x 0.6 x 0.7 cm previously 1.0 by 0.9 x 0.7 cm. Composition: Solid Echogenicity: Hypoechoic, predominantly calcified Shape: wider than tall. Margins: Smooth Echogenic foci: Macro calcification Total points: Five ACR TI-RADS category: Four IMPRESSION: Stable, calcified 1.0 cm nodule. No significant change in five years and therefore no further follow-up is needed. ACR TI-RADS definitions and recommendations: TI-RADS 1 (benign): 0 points. FNA not needed. TI-RADS 2 (not suspicious): 2 points. FNA not needed. TI-RADS 3: 3 points. * FNA if 2.5 cm or larger, follow up if 1.5 cm or larger (at 1, 3, and 5 years). TI-RADS 4: 4-6 points. * FNA if 1.5 cm or larger, follow up if 1 cm or larger (at 1, 2, 3, and 5 years). TI-RADS 5: 7 points or more. * FNA if 1 cm or larger, follow up if 0.5 cm or larger (every year for 5 years). Dictated by: Katherine Martins M.D. on 08/03/2025 at 13:55 Approved by: Katherine Martins M.D. on 08/03/2025 at 13:58
== END ==
LOC: US 15:44
PROVIDERS: Family Provider Naturopath; PCP Family Medicine; Referring Provider Family Medicine; Visit Provider Family Medicine
DX: E04.1 Nontoxic single thyroid nodule (principal)
CPT/HCPCS: 76536

== ENCOUNTER → 2025-08-09 08:40 | Outpatient (CLI) | payer MEDICARE, OTHER, SELFPAY ==
--- NOTE | 2025-08-09 08:42 | DI.MRI.S_ITS ---
PROCEDURE: MR BRAIN (PITUITARY) WWO CON INDICATIONS: Pituitary macroadenoma TECHNIQUE: Noncontrast sagittal and axial FLAIR, axial gradient echo, axial diffusion and ADC through the brain. Thin-slice sagittal and coronal T1 spin echo, coronal T2 fast spin echo through the pituitary. After the administration contrast, optional dynamic coronal T1 spin echo, thin-slice coronal and sagittal T1 spin echo images through the pituitary fossa; axial and coronal and sagittal T1 spin echo with fat saturation through the brain. COMPARISON: [facility], MR, MR HEAD/BRAIN WO/W CON, 03/22/2025, 17:38. FINDINGS: Image quality: Image quality degraded by patient motion artifact. Pituitary Gland: There is a 1.0 x 1.2 by 1.3 centimeter cystic lesion in the pituitary fossa which may reflect surgical resection cavity.. There is a 1.1 by 0.7 by 1.0 centimeter enhancing lesion in the superior right margin of the pituitary fossa which could reflect high residual macroadenoma or no abnormal enhancing pituitary tissue. The pituitary infundibulum is deviated to the right. The infundibulum demonstrates normal thickness and postcontrast enhancement. No suprasellar masses. The optic chiasm is normal. There is normal postcontrast enhancement of the cavernous sinus. CSF Spaces: Ventricles are normal in size and shape. Basal cisterns are patent. No extra-axial fluid collections. Brain: No intracranial bleeds or mass effects. No abnormal intracranial enhancement. Mccrary-white matter interface is intact. Mild, diffuse cerebral volume loss. Minimal periventricular and subcortical white matter chronic microvascular ischemic changes.. Diffusion weighted images demonstrate no acute ischemic insults. Brainstem is normal. Normal intravascular flow voids are present. Skull and face: Calvarial marrow is normal in signal. Orbits appear normal. Sinuses: Mild mucosal thickening in the sphenoid sinuses. mastoids are clear. 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 Small 1.0 x 0.7 x 1.0 centimeter enhancing lesion in the right margin of pituitary fossa may represent residual pituitary macroadenoma or normal pituitary tissue. Recommend follow-up imaging 6-12 months to evaluate for stability. Dictated by: Radha Bolaños MD, PhD on 08/09/2025 at 12:22 Approved by: Radha Bolaños MD, PhD on 08/09/2025 at 12:33
== END ==
LOC: MRI 08:41
PROVIDERS: Family Provider Naturopath; PCP Family Medicine; Referring Provider Family Medicine; Visit Provider Family Medicine
DX: D35.2 Benign neoplasm of pituitary gland (principal)
CPT/HCPCS: 70553; A9579